=== PATIENT | male | born 1995 | race African-American/Black ===

== ENCOUNTER 2016-07-22 22:57 | Emergency (ER) | payer SELFPAY ==
[~2016-07-22 22:57] MED LIST: Z.0.NO CURRENT MEDS
[2016-07-22 22:59] VITALS: BP 134/66; PULSE 83; RESP 16; TEMP 98.8; O2SAT 98
--- NOTE | 2016-07-23 00:05 | RADRPT ---
EXAM DATE/TIME: 07/22/2016 23:33 [facility] COMPARISON: No previous studies available for comparison. 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 MEDICAL HISTORY : None. SURGICAL HISTORY : None. ENCOUNTER: Initial ACUITY: 3 days PAIN SCORE: 2/10 LOCATION: Left hand FINDINGS: Three view examination of the left hand demonstrates no soft tissue swelling, dislocation, or fractur e. The carpal bones appear intact. The interphalangeal and metacarpophalangeal joints are intact. Bony mineralization is normal. CONCLUSION: Unremarkable examination of the left hand. Kelechi Nichole MD on July 23, 2016 at 0:04 Board Certified Radiologist. This report was verified electronically.
--- NOTE | 2016-07-23 01:07 | PD ---
HPI Chief Complaint: Pain: Acute or Chronic Time Seen by Provider: 01:04 Travel History International Travel<30 days: No Contact w/Intl Traveler<30days: No Traveled to known affect area: No History of Present Illness HPI Patient is a 20-year-old male presenting to emergency Department for evaluation of left hand weakness. 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 He denies any numbness or tingling. He denies any pain or swelling in his hand. He denies any injury or trauma. Patient denies any significant past medical history. His symptoms have been ongoing for approximately 4 days. [facility] Past Medical History Medical History: Denies Significant Hx Developmental Delay: No Immunizations Current: Yes Past Surgical History Surgical History: No Previous Surgery Genitourinary Surgery: Yes (CIRCUMCISION) Social History Alcohol Use: No Tobacco Use: No Substance Use: No Allergies-Medications (Allergen,Severity, Reaction): Coded Allergies: No Known Allergies (Verified , 07/22/16) Reported Meds & Prescriptions Reported Meds & Active Scripts Active No Active Prescriptions or Reported Medications Review of Systems Except as stated in HPI: all other systems reviewed are Neg Neurologic: Positive: Weakness Physical Exam Narrative GENERAL: Well-nourished, well-developed patient. SKIN: Focused skin assessment warm/dry. HEAD: Normocephalic. EYES: No scleral icterus. No injection or drainage. NECK: Supple, trachea midline. No JVD or lymphadenopathy. CARDIOVASCULAR: Regular rate and rhythm without murmurs, gallops, or rubs. RESPIRATORY: Breath sounds equal bilaterally. No accessory muscle use. GASTROINTESTINAL: Abdomen soft, non-tender, nondistended. MUSCULOSKELETAL: No cyanosis, or edema. 4/5 national park tour guide strength on the left. Positive radial pulse, brisk. Less than 2 second capillary refill. No pain with hyperextension of fingers on left hand. BACK: Nontender without obvious deformity. No CVA tenderness. Data Data Last Documented VS Vital Signs Date Time Temp Pulse Resp B/P Pulse Ox O2 Delivery O2 Flow Rate FiO2 07/22/16 22:59 98.8 83 16 134/66 98 Room Air Orders Hand, Complete ([id number]) (07/22/16 ) [facility] Medical Decision Making Medical Screen Exam Complete: Yes Emergency Medical Condition: Yes Interpretation(s) Vital Signs Date Time Temp Pulse Resp B/P Pulse Ox O2 Delivery O2 Flow Rate FiO2 07/22/16 22:59 98.8 83 16 134/66 98 Room Air Differential Diagnosis Neuropathy versus muscle strain versus demyelinating disorder versus myopathy versus other Narrative Course Patient is a 20-year-old male presenting with 4 days of crease 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 Patient is neurovascularly intact, and he had no pain with passive extension of fingers of left hand. No swelling or obvious deformities noted. Patient had no weakness in the left elbow or shoulder. Patient was seen and evaluated by my attending physician as well, at this time patient will be referred to neurology for outpatient testing, EMG studies he was advised to return to emergency department immediately for any new or worsening symptoms. Patient and significant other verbalized understanding of these instructions. Patient is stable for discharge. Physician Communication Physician Communication Discussed with Dr. New who independently evaluated patient. Diagnosis Primary Impression: Distal muscle weakness Referrals: Jaswant Trevino MD Neurologist Patient Instructions: General Instructions Additional Instructions: Follow-up with neurology for outpatient testing Return to the emergency department immediately for any new or worsening symptoms Med/Other Pt SpecificInfo: No Change to Meds Scripts No Active Prescriptions or Reported Meds Disposition: 01 DISCHARGE HOME Condition: Stable Alicia Mills Jul 23, 2016 01:07
== END 2016-07-23 03:01 | disposition home or self-care (01) ==
LOC: NEPD 22:57
DX: M62.81 Muscle weakness (generalized) (principal)
CPT/HCPCS: 73130; 99283

== ENCOUNTER 2016-07-25 16:58 | Emergency (ER) | payer SELFPAY ==
[~2016-07-25] VITALS: Ht 170.2 cm; Wt 110.0 kg
[2016-07-25 17:01] VITALS: BP 132/75; PULSE 80; RESP 20; TEMP 98.6; O2SAT 98
[2016-07-25 17:30] VITALS: BP 118/61; PULSE 79; RESP 20; O2SAT 99
--- NOTE | 2016-07-25 17:32 | PD ---
HPI Chief Complaint: Neuro Symptoms/ Deficits Time Seen by Provider: 17:15 Travel History International Travel<30 days: No Contact w/Intl Traveler<30days: No Traveled to known affect area: No History of Present Illness HPI Patient comes in complaining of continued left upper extremity weaknesses, progressively worse since being seen here 3 days ago. Patient denies any known injury. Patient states previously was just weaknesses left hand, but has since moved up to the shoulder. Patient reports throbbing aching pain from his left upper extremity. Pain is constant and denies anything making it better or worse. Denies any neck pain, headache, chest pain, shortness of breath, change in vision, dizziness, loss change in bowel or bladder, or recent known injury. Mother is concerned over reports patient was dragging his left foot earlier today and patient is a rash on his left foot. Patient reports rash is itchy and that he just been scratching at it. [facility] Past Medical History Medical History: Denies Significant Hx Developmental Delay: No Immunizations Current: Yes Past Surgical History Genitourinary Surgery: Yes (CIRCUMCISION) Social History Alcohol Use: No Tobacco Use: No Substance Use: No Allergies-Medications (Allergen,Severity, Reaction): Coded Allergies: No Known Allergies (Verified , 07/22/16) Reported Meds & Prescriptions Reported Meds & Active Scripts Active No Active Prescriptions or Reported Medications Review of Systems Except as stated in HPI: all other systems reviewed are Neg Physical Exam Narrative GENERAL: Well-developed, overly nourished, in no acute distress, and non-ill appearing. SKIN: Focused skin assessment warm and dry. Tinea pedis noted on the dorsal aspect of left foot. No signs of secondary infection. HEAD: Atraumatic. Normocephalic. EYES: Pupils equal and round. EOMI. No scleral icterus. No injection or drainage. ENT: No nasal bleeding or discharge. Mucous membranes pink and moist. No deviation of the tongue. Smile symmetrical. Equal rise and fall the eyebrows. NECK: Trachea midline. Supple. No nuclear rigidity. No tenderness crepitus or midline cervical spine. CARDIOVASCULAR: Dorsal and radial pulses are 2+, intact, and equal bilaterally. Capillary refill less than 2 seconds. RESPIRATORY: No accessory muscle use. No respiratory distress. MUSCULOSKELETAL: No obvious deformities. No clubbing. No cyanosis. No edema. Full range of motion. Shoulder:FROM equal BL with passive flexion, extension, Abduction, Adduction, internal/external rotation, and pronation/supination. Sensation equal BL deltoid muscles. Pulses equal BL distal to injury. Capillary refill less than 2 seconds distal to injury and equal BL. FROM distal to injury and equal BL. Strength is slightly decreased on the left compared to right. NV intact distal to injury equal BL. Flexion and extension of thumb equal BL. Equal movement with abduction/adductions of BL fingers. 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 NEUROLOGICAL: Awake and alert. No obvious cranial nerve deficits. Motor grossly within normal limits. Normal speech. PSYCHIATRIC: Appropriate mood and affect; insight and judgment normal. Data Data Last Documented VS Vital Signs Date Time Temp Pulse Resp B/P Pulse Ox O2 Delivery O2 Flow Rate FiO2 07/25/16 19:21 67 18 121/58 100 07/25/16 17:30 Room Air 07/25/16 17:[address] Brain W/O Iv Contrast(Rout) (07/25/16 ) Ct Cerv Spine W/O Contrast (07/25/16 ) Shoulder, Complete (>2vws) (07/25/16 ) [facility] Medical Decision Making Medical Screen Exam Complete: Yes Emergency Medical Condition: Yes Interpretation(s) CT the head, CT the cervical spine, x-rays of the left shoulder read by the radiologist showed no acute abnormalities. Differential Diagnosis Radiculopathy, tumor, fracture, nerve impingement, other Narrative Course Patient in no obvious distress upon re-evaluation. All pertinent Radiology result(s) discussed with patient/family. Discussed patient with Dr. Cope, who saw and evaluated the patient and is in agreement with plan of care and disposition.. Any questions/concerns in reference to patient diagnosis/ condition discussed and clarified prior to patient's discharge. Reinforced sheer importance of close follow up with patient's primary physician or primary care clinic and/or neurology. Instructed patient to return to ED immediately, if symptoms return/worsen. Pt showed understanding of above instructions. Further instructions and recommendations were detailed in discharge paperwork. Pt ambulated without difficulty out of ED at discharge. Diagnosis Primary Impression: Left arm weakness Additional Impression: Tinea pedis of left foot Patient Instructions: General Instructions, Tinea Pedis (DC), Weakness (ED) Additional Instructions: Follow-up with your primary care physician and neurology this week for reevaluation. Use [id number] antifungal cream for your rash. Follow instructions on the packaging. Return to the emergency department if symptoms get worse. Scripts No Active Prescriptions or Reported Meds Disposition: 01 DISCHARGE HOME Condition: Reinier Fuentes Jul 25, 2016 17:32
--- NOTE | 2016-07-25 18:18 | RADRPT ---
EXAM DATE/TIME: 07/25/2016 17:35 [facility] COMPARISON: No previous studies available for comparison. INDICATIONS : Non-traumatic left shoulder pain MEDICAL HISTORY : None. SURGICAL HISTORY : None. ENCOUNTER: Initial ACUITY: 3 days PAIN SCORE: 7/10 LOCATION: Left shoulder FINDINGS: Multiple view examination of the left shoulder demonstrates no evidence of fracture or dislocation. The glenohumeral and acromioclavicular joints are maintained. There is normal range of motion betwee n internal and external rotation. Bony mineralization is normal. CONCLUSION: Normal radiographic appearance of the left shoulder. Herbie Fisher MD on July 25, 2016 at 18:15 Board Certified Radiologist. This report was verified electronically.
--- NOTE | 2016-07-25 18:22 | RADRPT ---
EXAM DATE/TIME: 07/25/2016 18:07 [facility] COMPARISON: No previous studies available for comparison. INDICATIONS : Left sided weakness. RADIATION DOSE: 56.35 CTDIvol (mGy) MEDICAL HISTORY : None SURGICAL HISTORY : None. ENCOUNTER: Initial ACUITY: 3 days PAIN SCALE: 0/10 LOCATION: cranial TECHNIQUE: Multiple contiguous axial images were obtained of the head. Using automated exposure control and adj ustment of the mA and/or kV according to patient size, radiation dose was kept as low as reasonably a chievable to obtain optimal diagnostic quality images. FINDINGS: CEREBRUM: The ventricles are normal for age. No evidence of midline shift, mass lesion, hemorrhage or acute in farction. No extra-axial fluid collections are seen. POSTERIOR FOSSA: The cerebellum and brainstem are intact. The 4th ventricle is midline. The cerebellopontine angle i s unremarkable. EXTRACRANIAL: 3.4 cm mucous retention cyst seen in the left maxillary air cell. Visualized paranasal sinuses are ot herwise clear. Mastoid air cells are also clear. SKULL: The calvaria is intact. No evidence of skull fracture. CONCLUSION: No acute intracranial abnormality demonstrated. Herbie Fisher MD on July 25, 2016 at 18:18 Board Certified Radiologist. This report was verified electronically.
--- NOTE | 2016-07-25 18:23 | RADRPT ---
EXAM DATE/TIME: 07/25/2016 18:09 [facility] COMPARISON: No previous studies available for comparison. INDICATIONS : Left sided weakness. RADIATION DOSE: 18.26 CTDIvol (mGy) MEDICAL HISTORY : None SURGICAL HISTORY : None. ENCOUNTER: Initial ACUITY: 3 days PAIN SCALE: 0/10 LOCATION: neck TECHNIQUE: Volumetric scanning of the cervical spine was performed. Multiplanar reconstructions in the sagittal, coronal and oblique axial planes were performed. Using automated exposure control and adjustment o f the mA and/or kV according to patient size, radiation dose was kept as low as reasonably achievable to obtain optimal diagnostic quality images. FINDINGS: VERTEBRAE: Normal vertebral body height. ALIGNMENT: No evidence of subluxation. C2-C3: The bony spinal canal is normal in size. No evidence of disc bulge or herniation. The neural forami na are bilaterally patent. C3-C4: The bony spinal canal is normal in size. No evidence of disc bulge or herniation. The neural forami na are bilaterally patent. C4-C5: The bony spinal canal is normal in size. No evidence of disc bulge or herniation. The neural forami na are bilaterally patent. C5-C6: The bony spinal canal is normal in size. No evidence of disc bulge or herniation. The neural forami na are bilaterally patent. C6-C7: The bony spinal canal is normal in size. No evidence of disc bulge or herniation. The neural forami na are bilaterally patent. C7-T1: The bony spinal canal is normal in size. No evidence of disc bulge or herniation. The neural forami na are bilaterally patent. CONCLUSION: Normal CT of the cervical spine. Herbie Fisher MD on July 25, 2016 at 18:21 Board Certified Radiologist. This report was verified electronically.
[2016-07-25 19:21] VITALS: BP 121/58
== END 2016-07-25 19:24 | disposition home or self-care (01) ==
LOC: NEPC 16:58
DX: R53.1 Weakness (principal); B35.3 Tinea pedis
CPT/HCPCS: 70450; 72125; 73030

== ENCOUNTER 2016-11-11 23:19 | Inpatient (IN) | payer SELFPAY ==
[~2016-11-11] VITALS: Ht 170.2 cm; Wt 101.3 kg
[~2016-11-11 23:19] MED LIST changes: +AMOX875T PO; -Z.0.NO CURRENT MEDS
[2016-11-11 23:21] VITALS: BP 132/76; PULSE 78; RESP 16; TEMP 98.3; O2SAT 99
[2016-11-12] VITALS (8 sets, daily range): BP systolic 114–126; BP diastolic 59–91; PULSE 56–71; RESP 16–19; TEMP 97.5–98.5; O2SAT 99–100
--- NOTE | 2016-11-12 00:37 | PD ---
HPI Chief Complaint: Neuro Symptoms/ Deficits Time Seen by Provider: 00:19 Travel History International Travel<30 days: No Contact w/Intl Traveler<30days: No Traveled to known affect area: No History of Present Illness HPI The patient is a 21 year old male who presents to the [facility] emergency department with a history of left side arm and leg weakness that began on 07/22. The weakness is constant and worsening over time. He was referred to a neurologist and to have an outpatient MRI however he lost his insurance and was not able to complete the evaluation. He has mild dizziness with it and has fallen a few times because of the weakness and dizziness. His mom is present at the patient's bedside and reports that he has gotten progressively worse over the last 2 weeks. She reports that they're in the process of applying for patient assistance. She reports noticing that he is also experiencing facial asymmetry with a slight change in the appearance of the left side of his face. He denies having any headaches, fevers, cough, congestion, neck pain, chest pain , shortness of breath, abdominal pain, vomiting, diarrhea, urinary symptoms, numbness or tingling, double vision, difficulty speaking, or difficulty with word finding ability. [facility] Past Medical History Narrative Medical The patient's past medical history is reportedly None. Developmental Delay: No Diminished Hearing: No Immunizations Current: Yes Past Surgical History Surgical History: No Previous Surgery Genitourinary Surgery: Yes (CIRCUMCISION) Social History Alcohol Use: Yes (every other week.) Tobacco Use: No Substance Use: No Allergies-Medications (Allergen,Severity, Reaction): Coded Allergies: No Known Allergies (Verified , 11/12/16) Reported Meds & Prescriptions Reported Meds & Active Scripts Active Amoxicillin 875 Mg Tab 875 Mg PO BID on antibiotic for an ear infection Review of Systems Except as stated in HPI: all other systems reviewed are Neg General / Constitutional: No: Fever Eyes: No: Visual changes HENT: Positive: Other (bubbling noise in his ear.), No: Headaches Cardiovascular: No: Chest Pain or Discomfort Respiratory: No: Shortness of Breath Gastrointestinal: No: Abdominal Pain Genitourinary: No: Dysuria Musculoskeletal: No: Pain Skin: No Rash Neurologic: Positive: Weakness, Dizziness, Focal Abnormalities, Coordination Problem, No: Change in Mentation, Slurred Speech, Sensory Disturbance Psychiatric: No: Depression Endocrine: No: Polydipsia Hematologic/Lymphatic: No: Easy Bruising Physical Exam Narrative General: The patient is a well-developed well-nourished male in no acute distress. Head and Neck exam: Head is normocephalic atraumatic. Eyes: EOMI, pupils are equal round and reactive to light. Nose: Midline septum with pink mucous membranes Mouth: Dentition unremarkable. Moist mucus membranes. Posterior oropharynx is not erythematous. No tonsillar hypertrophy. Uvula midline. Airway patent. Neck: No palpable lymphadenopathy. No nuchal rigidity. No thyromegaly. Cardiovascular: Regular rate and rhythm without murmurs, gallops, or rubs. No pulse deficit to the extremities. Lungs: Clear to auscultation bilaterally. No wheezes, rhonchi, or rales. Abdomen: Soft, without tenderness to palpation in all 4 quadrants of the abdomen. No guarding, rebound, or rigidity. Normal bowel sounds are audible. No tenderness on palpation of McBurney's point. Negative Galicia's sign. Extremities: No clubbing, cyanosis, or edema. 2+ pulses in all 4 extremities. Back: No spinous process tenderness to palpation. No costovertebral angle tenderness to palpation. Neurologic Exam: The patient has an apparent subtle left-sided facial droop. The patient has a slightly weaker hand area loss prevention manager of the left hand compared to the right, otherwise strength is 5 over 5 in bilateral upper extremities. Strength is 5 over 5 in bilateral lower extremities. The patient has a course tremor in the left upper extremity with movements. Otherwise, cranial nerves II through XII are intact. No nystagmus. No dysdiadochokinesis. Skin Exam: No rash noted. Intact skin that is warm and dry. Data Data Last Documented VS Vital Signs Date Time Temp Pulse Resp B/P (MAP) Pulse Ox O2 Delivery O2 Flow Rate FiO2 11/11/16 23:21 98.3 78 16 132/76 (94) 99 Room Air Orders Orders Electrocardiogram (11/12/16 00:19) Complete Blood Count With Diff (11/12/16 00:19) Comprehensive Metabolic Panel (11/12/16 00:19) Creatine Kinase (Cpk) (11/12/16 00:19) Ckmb (Isoenzyme) Profile (11/12/16 00:19) Prothrombin Time / Inr (Pt) (11/12/16 00:19) Act Partial Throm Time (Ptt) (11/12/16 00:19) C-Reactive Protein (Crp) (11/12/16 00:19) Urinalysis - C+S If Indicated (11/12/16 00:19) Westergren Sedimentation Rate (11/12/16 00:19) Magnesium (Mg) (11/12/16 00:19) Thyroid Stimulating Hormone (11/12/16 00:19) Chest, Single Ap (11/12/16 00:19) Ct Brain W/O Iv Contrast(Rout) (11/12/16 00:19) Iv Access Insert/Monitor (11/12/16 00:19) Ecg Monitoring (11/12/16 00:19) Oximetry (11/12/16 00:19) Drug Screen, Random Urine (11/12/16 00:19) Alcohol (Ethanol) (11/12/16 00:19) Admit Order (Ed Use Only) (11/12/16 02:56) Consult Neurology (11/12/16 ) Labs Laboratory Tests Test 11/12/16 00:45 White Blood Count 10.6 TH/MM3 Red Blood Count 4.94 MIL/MM3 Hemoglobin 14.4 GM/DL Hematocrit 42.4 % Mean Corpuscular Volume 85.9 FL Mean Corpuscular Hemoglobin 29.2 PG Mean Corpuscular Hemoglobin Concent 33.9 % Red Cell Distribution Width 13.4 % Platelet Count 301 TH/MM3 Mean Platelet Volume 7.8 FL Neutrophils (%) (Auto) 55.9 % Lymphocytes (%) (Auto) 37.1 % Monocytes (%) (Auto) 5.0 % Eosinophils (%) (Auto) 1.5 % Basophils (%) (Auto) 0.5 % Neutrophils # (Auto) 5.9 TH/MM3 Lymphocytes # (Auto) 3.9 TH/MM3 Monocytes # (Auto) 0.5 TH/MM3 Eosinophils # (Auto) 0.2 TH/MM3 Basophils # (Auto) 0.1 TH/MM3 CBC Comment DIFF FINAL Differential Comment Erythrocyte Sedimentation Rate 2 mm/hr Prothrombin Time 10.8 SEC Prothromb Time International Ratio 1.0 RATIO Activated Partial Thromboplast Time 28.5 SEC Blood Urea Nitrogen 8 MG/DL Creatinine 0.92 MG/DL Random Glucose 84 MG/DL Total Protein 7.8 GM/DL Albumin 3.9 GM/DL Calcium Level 9.3 MG/DL Magnesium Level 2.2 MG/DL Alkaline Phosphatase 50 U/L Aspartate Amino Transf (AST/SGOT) 9 U/L Alanine Aminotransferase (ALT/SGPT) 10 U/L Total Bilirubin 0.3 MG/DL Sodium Level 138 MEQ/L Potassium Level 4.1 MEQ/L Chloride Level 105 MEQ/L Carbon Dioxide Level 30.1 MEQ/L Anion Gap 3 MEQ/L Estimat Glomerular Filtration Rate 126 ML/MIN Total Creatine Kinase 95 U/L C-Reactive Protein LESS THAN 0.29 MG/DL Thyroid Stimulating Hormone 3rd Gen 1.920 uIU/ML Ethyl Alcohol Level LESS THAN 3 MG/DL MDM Medical Decision Making Medical Screen Exam Complete: Yes Emergency Medical Condition: Yes Medical Record Reviewed: Yes Interpretation(s) Last Impressions Head CT 11/12/1618 Signed Impressions: Service Date/Time: October 00:59 - CONCLUSION: Low attenuation in the area of the right basal ganglia. Further evaluation with MRI of the brain with and without contrast is recommended. Pola Gonzalez MD Chest X-Ray 11/12/1618 Signed Impressions: Service Date/Time: October 00:48 - CONCLUSION: 1. Enlarged cardiopericardial silhouette. No focal infiltrate or effusion. Pola Gonzalez MD Differential Diagnosis Ischemic stroke, versus multiple sclerosis, versus vasculitis. Narrative Course During the course of the patients emergency department visit, the patients history, examination, and differential diagnosis were reviewed with the patient. The patient had IV access obtained and blood work sent for analysis. The patient was placed on a precision printing worker with oximetry and blood pressure monitoring. The patient's electronic medical record was reviewed. The patient was initially seen in the emergency department on July 22, the patient had an x- ray done of his limb, and on July 25 the patient was again seen in the emergency department and did have a CT scan of the brain done that was negative. A repeat CT scan has been ordered at this time as he does have abnormalities noted on his neurologic examination. The patients laboratory studies were reviewed and remarkable for a CBC that is within normal limits, sedimentation rate is 2. CMP is remarkable for an anion gap of 3, AST 9, ALT 10, CPK 95, C-reactive protein less than 0.29, TSH 1.92, PT PTT within normal limits, alcohol level less than 3 Radiology studies were reviewed and remarkable for a CT scan of the brain that shows a low attenuation area in the right basal ganglia, further evaluation with MRI of the brain with and without contrast is recommended. A chest x-ray that shows an enlarged cardiopericardial silhouette, no focal infiltrate or effusion. The patient will be admitted to the hospital to obtain the MRI and for a neurologic consultation. The patients results were discussed with the patient, including the plan of care. I explained that further testing and/ or monitoring is indicated based on the patients history, examination, and/ or laboratory findings. Therefore, I recommended admission for additional evaluation. The patient expressed understanding and was agreeable with this plan. The patient was admitted to the hospital in stable condition and [facility] Physician Communication Physician Communication The patient's case was discussed with Dr. Morales who did agree to admit the patient for further evaluation and treatment at this time for Diagnosis Primary Impression: Multiple neurological symptoms Admitting Information Admitting Physician Requests: Katharina Cleary MD Nov 12, 2016 00:37
[2016-11-12 01:08] LABS: AUTOMATED NEUTROPHIL # 5.9 TH/MM3 (1.8-7.7); BASOPHIL # 0.1 TH/MM3 (0-0.2); BASOPHIL % 0.5 % (0.0-2.0); EOSINOPHIL # 0.2 TH/MM3 (0-0.4); EOSINOPHIL % 1.5 % (0.0-4.0); HEMATOCRIT 42.4 % (39.0-51.0); HEMO FLAGS DIFF FINAL; LYMPH % 37.1 % (9.0-44.0); LYMPHOCYTE # 3.9 TH/MM3 (1.0-4.8); MEAN CELL VOLUME 85.9 FL (80.0-100.0); MEAN CORPUSCULAR HEMOGLOBIN 29.2 PG (27.0-34.0); MEAN CORPUSCULAR HGB CONC 33.9 % (32.0-36.0); NEUT % 55.9 % (16.0-70.0); PLATELET COUNT 301 TH/MM3 (150-450); RED BLOOD COUNT 4.94 MIL/MM3 (4.50-5.90); RED CELL DISTRIBUTION WIDTH 13.4 % (11.6-17.2); WHITE BLOOD COUNT 10.6 TH/MM3 (4.0-11.0)
[2016-11-12 01:20] LABS: APTT (PATIENT) 28.5 SEC (24.3-30.1); PROTHROMBIN TIME - PATIENT 10.8 SEC (9.8-11.6)
[2016-11-12 01:23] LABS: ALT (GPT) 10 U/L (12-78); ANION GAP 3 MEQ/L (5-15); AST (GOT) 9 U/L (15-37); BICARBONATE 30.1 MEQ/L (21.0-32.0); BLOOD UREA NITROGEN 8 MG/DL (7-18); CHLORIDE 105 MEQ/L (98-107); GLOMERULAR FILTRATION RATE 126 ML/MIN (>89); MAGNESIUM 2.2 MG/DL (1.5-2.5); POTASSIUM 4.1 MEQ/L (3.5-5.1); SODIUM (NA) 138 MEQ/L (136-145)
--- NOTE | 2016-11-12 01:29 | RADRPT ---
EXAM DATE/TIME: 11/12/2016 00:59 [facility] COMPARISON: CT BRAIN W/O CONTRAST, July 25, 2016, 18:07. INDICATIONS : Increased left sided weakness; left sided weakness for four months. RADIATION DOSE: 32.82 CTDIvol (mGy) MEDICAL HISTORY : None SURGICAL HISTORY : None. ENCOUNTER: Initial ACUITY: 1 day PAIN SCALE: 0/10 LOCATION: cranial TECHNIQUE: Multiple contiguous axial images were obtained of the head. Using automated exposure control and adj ustment of the mA and/or kV according to patient size, radiation dose was kept as low as reasonably a chievable to obtain optimal diagnostic quality images. DICOM format image data is available electro nically for review and comparison. FINDINGS: There is some ill-defined low attenuation in the right basal ganglia region. Cannot exclude underlyin g lesion or infarct. Recommend further evaluation with MRI of the brain. No hydrocephalus. No acute b rosemarie abnormalities. No abnormal extra-axial fluid. CONCLUSION: Low attenuation in the area of the right basal ganglia. Further evaluation with MRI of the brain with and without contrast is recommended. Pola Gonzalez MD on November 12, 2016 at 1:24 Board Certified Radiologist. This report was verified electronically.
[2016-11-12 01:31] LABS: ALKALINE PHOSPHATASE 50 U/L (45-117); TOTAL BILIRUBIN ADULT 0.3 MG/DL (0.2-1.0)
[2016-11-12 01:32] LABS: ALCOHOL LESS THAN 3 MG/DL (0-5); CREATINE KINASE 95 U/L (39-308)
--- NOTE | 2016-11-12 01:33 | RADRPT ---
EXAM DATE/TIME: 11/12/2016 00:48 [facility] COMPARISON: No previous studies available for comparison. INDICATIONS : Cough. Left side weakness. MEDICAL HISTORY : None. SURGICAL HISTORY : None. ENCOUNTER: Initial ACUITY: 1 day PAIN SCORE: 0/10 LOCATION: Left chest FINDINGS: A single view of the chest demonstrates enlargement of the cardiopericardial silhouette. No focal con solidation or significant effusion. No pneumothorax. CONCLUSION: 1. Enlarged cardiopericardial silhouette. No focal infiltrate or effusion. Pola Gonzalez MD on November 12, 2016 at 1:31 Board Certified Radiologist. This report was verified electronically.
[2016-11-12] MEDS ORDERED: GLUCAGON 1 MG/ML VIAL OTHER PRN (03:15)
[2016-11-12] MEDS ORDERED: DEXTROSE 50% IN WATER 50 ML VIAL(D50) IV PUSH PRN (03:15)
[2016-11-12] MEDS ORDERED: SODIUM CHLORIDE 0.9% FLUSH 5 ML FLUSH IV FLUSH PRN (03:15)
[2016-11-12] MEDS ORDERED: GADODIAMIDE PF 287 MG/ML 20 ML VIAL (for RAD MRI) IVCONTRAST ONE (08:29)
[2016-11-12] MEDS ORDERED: SODIUM CHLOR 0.9% 1000 ML INJ 1,000 ML IV ONE (09:15)
--- NOTE | 2016-11-12 09:32 | HHI.HP ---
HPI Service [facility] Primary Care Physician Komal Olivia MD Admission Diagnosis Progressive neurologic symptoms Diagnoses: Chief Complaint: Trouble walking, worsening weakness on left side Travel History International Travel<30 Days: No Contact w/Intl Traveler <30 Da: No Traveled to Known Affected Are: No History of Present Illness 21-year-old black male being admitted for progressive left-sided weakness. Patient was in his usual state of health until about 1 week ago when he began noticing worsening left leg weakness and difficulty walking. This problem originally emerged earlier about 3 months ago in July per the patient. Says that he was referred to a neurologist and then referred for outpatient MRI imaging which he was not able to obtain due to loss of insurance. About one week ago he reports having worsening weakness of his left leg, namely the thigh and calf. Says that he can crank his ankles and toes just fine; but does note difficulty walking while leaning towards his left side and says that he does not feel like he can walk steadily, reports near falls consequently. This is also associated with mild left arm weakness which she says he notices while he is showering and also was informed that his lips were "turning in" by his mother. He reports that he has some uncontrolled drooling when he drinks liquids, but denies any issues with choking or coughing while ingesting liquids and or solids. He also reports intermittent blurry vision that has also been picking up frequency since one week ago. Denies any new headaches, nausea, vomiting, fevers, chills, changes in sensation, burning or tingling pain. Denies taking any medications to treat symptoms. Patient has a very subtle resting tremor in both hands, when asked about this, he says this is something he's had lifelong. Review of Systems Except as stated in HPI: all other systems reviewed are Neg Past Family Social History Past Medical History None Past Surgical History None Allergies: Coded Allergies: No Known Allergies (Verified , 11/12/16) Family History No family history of any neurological or msk disease per patient Social History Lives with father, was going to college until his illness began worsening, denies any illicit drug use, reports drinking up to 8 ounces of alcohol about every other week on social occasions Physical Exam Vital Signs Vital Signs Date Time Temp Pulse Resp B/P (MAP) Pulse Ox O2 Delivery O2 Flow Rate FiO2 11/12/16 07:36 97.8 62 18 122/70 (87) 100 11/12/16 07:11 56 11/12/16 06:11 60 11/12/16 06:04 97.5 62 19 126/91 (103) 100 11/11/16 23:21 98.3 78 16 132/76 (94) 99 Room Air Physical Exam VS: Reviewed, afebrile GENERAL: No acute distress, awake, SKIN: Warm and dry. EYES: Pupils equal and round. No scleral icterus. No injection or drainage. ENT: No nasal bleeding or discharge. Mucous membranes pink and moist. CARDIOVASCULAR: Regular rate and rhythm. no murmurs RESPIRATORY: No accessory muscle use. Clear to auscultation. Breath sounds equal bilaterally. GASTROINTESTINAL: Abdomen soft, non-tender, nondistended. Hepatic and splenic margins not palpable. MUSCULOSKELETAL: Extremities without clubbing, cyanosis, or edema. No obvious deformities. grossly intact ROM with 4 out of 5 strength noted in proximal left upper extremity in comparison to 5 out of 5 on the right, yet intact 5 out of 5 fist hair cutter bilaterally. Patient needing considerable assistance with balance upon transferring from bed to wheelchair NEUROLOGICAL: Awake and alert. Left-sided facial droop noted, no diplopia noted , intact conjugate gaze , extraocular motions intact, uvula and tongue midline, unable to precisely perform left finger to nose to finger test in comparison to normal on the right, slightly abnormal tsym-pt-bvic test on the left, grossly intact sensation to pinprick over anterior shins and dorsum of bilateral feet as well as distal arms bilaterally. Slightly hyperreflexive left patellar reflex, normal 2+ right patellar reflex. Very subtle resting tremor in both hands that resolves with movement PSYCHIATRIC: Appropriate mood and affect; insight and judgment normal. Laboratory Laboratory Tests Test 11/12/16 00:45 White Blood Count 10.6 Red Blood Count 4.94 Hemoglobin 14.4 Hematocrit 42.4 Mean Corpuscular Volume 85.9 Mean Corpuscular Hemoglobin 29.2 Mean Corpuscular Hemoglobin Concent 33.9 Red Cell Distribution Width 13.4 Platelet Count 301 Mean Platelet Volume 7.8 Neutrophils (%) (Auto) 55.9 Lymphocytes (%) (Auto) 37.1 Monocytes (%) (Auto) 5.0 Eosinophils (%) (Auto) 1.5 Basophils (%) (Auto) 0.5 Neutrophils # (Auto) 5.9 Lymphocytes # (Auto) 3.9 Monocytes # (Auto) 0.5 Eosinophils # (Auto) 0.2 Basophils # (Auto) 0.1 CBC Comment DIFF FINAL Differential Comment Erythrocyte Sedimentation Rate 2 Prothrombin Time 10.8 Prothromb Time International Ratio 1.0 Activated Partial Thromboplast Time 28.5 Blood Urea Nitrogen 8 Creatinine 0.92 Random Glucose 84 Total Protein 7.8 Albumin 3.9 Calcium Level 9.3 Magnesium Level 2.2 Alkaline Phosphatase 50 Aspartate Amino Transf (AST/SGOT) 9 Alanine Aminotransferase (ALT/SGPT) 10 Total Bilirubin 0.3 Sodium Level 138 Potassium Level 4.1 Chloride Level 105 Carbon Dioxide Level 30.1 Anion Gap 3 Estimat Glomerular Filtration Rate 126 Total Creatine Kinase 95 C-Reactive Protein LESS THAN 0.29 Thyroid Stimulating Hormone 3rd Gen 1.920 Ethyl Alcohol Level LESS THAN 3 Result Diagram: 11/12/165 11/12/165 Imaging Last Impressions Head CT 11/12/1618 Signed Impressions: Service Date/Time: October 00:59 - CONCLUSION: Low attenuation in the area of the right basal ganglia. Further evaluation with MRI of the brain with and without contrast is recommended. Pola Gonzalez MD Chest X-Ray 11/12/1618 Signed Impressions: Service Date/Time: October 00:48 - CONCLUSION: 1. Enlarged cardiopericardial silhouette. No focal infiltrate or effusion. Pola Gonzalez MD Head Magnetic Resonance Angiography 11/12/16 0000 Signed Impressions: Service Date/Time: October 08:10 - CONCLUSION: Tiny right cavernous carotid aneurysm. Herbie Clemens MD Brain MRI 11/12/16 0000 Signed Impressions: Service Date/Time: October 08:10 - CONCLUSION: Widespread demyelinating disease with plaques at varying stages of evolution, including areas of active enhancing inflammation. MD Neena Mosquerai VTE Risk Assessment Adarshrintori VTE Risk Assessment: No/Low Risk (score <= 1) Caprini Risk Assessment Model Point Value = 1 Point Value = 2 Point Value = 3 Point Value = 5 Age 41-60 Minor surgery BMI > 25 kg/m2 Swollen legs Varicose veins or History of unexplained or recurrent spontaneous Oral contraceptives or hormone replacement Sepsis (< 1 month) Serious lung disease, including pneumonia (< 1 month) Abnormal pulmonary function Acute myocardial infarction Congestive heart failure (< 1 month) History of inflammatory bowel disease Medical patient at bed rest Age 61-74 Arthroscopic surgery Major open surgery (> 45 min) Laparoscopic surgery (> 45 min) Malignancy Confined to bed (> 72 hours) Immobilizing plaster cast Central venous access Age >= 75 History of VTE Family history of VTE Factor V Leiden Prothrombin [id number] Lupus anticoagulant Anticardiolipin antibodies Elevated serum homocysteine Heparin-induced thrombocytopenia Other congenital or acquired thrombophilia Stroke (< 1 month) Elective arthroplasty Hip, pelvis, or leg fracture Acute spinal cord injury (< 1 month) Prophylaxis Regimen Total Risk Factor Score Risk Level Prophylaxis Regimen 0-1 Low Early ambulation 2 Moderate Order ONE of the following: *Sequential Compression Device (SCD) *Heparin 5000 units SQ BID 3-4 Higher Order ONE of the following medications: *Heparin 5000 units SQ TID *Enoxaparin/Lovenox 40 mg SQ daily (WT < 150 kg, CrCl > 30 mL/min) *Enoxaparin/Lovenox 30 mg SQ daily (WT < 150 kg, CrCl > 10-29 mL/min) *Enoxaparin/Lovenox 30 mg SQ BID (WT < 150 kg, CrCl > 30 mL/min) AND/OR *Sequential Compression Device (SCD) 5 or more Highest Order ONE of the following medications: *Heparin 5000 units SQ TID (Preferred with Epidurals) *Enoxaparin/Lovenox 40 mg SQ daily (WT < 150 kg, CrCl > 30 mL/min) *Enoxaparin/Lovenox 30 mg SQ daily (WT < 150 kg, CrCl > 10-29 mL/min) *Enoxaparin/Lovenox 30 mg SQ BID (WT < 150 kg, CrCl > 30 mL/min) AND *Sequential Compression Device (SCD) Assessment and Plan Assessment and Plan 21-year-old black male being admitted for progressive left-sided weakness - Progressive left-sided weakness I independently reviewed the MRI slices and noted scattered spots throughout cerebrum with hyperattenuation that could possibly resemble multiple sclerosis. His historical presentation does not resemble that of a stroke. Neurology has been consulted. Labs have been reviewed which are highly unremarkable including TSH, magnesium, LFTs, CPK, ESR, electrolytes. We'll add on phosphorus. Neurology has also been consulted. We'll place on fall precautions as well as ordering physical and occupational therapy. Will give one-time IV bolus since patient has received contrast and recheck electrolytes tomorrow. - Facial droop Likely secondary to above, ordering speech therapy for diet and rehabilitation recommendations Physician Certification 2 Midnight Certification Type: Admission for Inpatient Services Order for Inpatient Services The services are ordered in accordance with Medicare regulations or non- Medicare payer requirements, as applicable. In the case of services not specified as inpatient-only, they are appropriately provided as inpatient services in accordance with the 2-midnight benchmark. Estimated LOS (days): 2 2 days is the estimated time the patient will need to remain in the hospital, assuming treatment plan goals are met and no additional complications. Post-Hospital Plan: Not yet determined Dane Zambrano MD Nov 12, 2016 09:32
[2016-11-12] MEDS: SODIUM CHLORIDE 0.9% FLUSH 5 ML FLUSH IV FLUSH SCH ×2 (09:33→21:00)
--- NOTE | 2016-11-12 09:54 | RADRPT ---
EXAM DATE/TIME: 11/12/2016 08:10 [facility] COMPARISON: CT BRAIN W/O CONTRAST, July 25, 2016, 18:07. CT BRAIN W/O CONTRAST, November 12, 2016, 0:59. INDICATIONS : Increasing left sided weakness over past 4 months. CONTRAST: 20 cc Omniscan (gadodiamide) IV MEDICAL HISTORY : None. SURGICAL HISTORY : None. ENCOUNTER: Subsequent ACUITY: 4-6 months PAIN SCORE: 0/10 LOCATION: head. TECHNIQUE: Multiplanar, multisequence MRI of the brain was performed both prior to and following the administrat ion of paramagnetic contrast. FINDINGS: There are widespread white matter plaques of varying stages of evolution involving supratentorial bra in as well as the upper brain brainstem structures. A lesion in the high convexity right parietal reg ion shows moderate peripheral ring enhancement and there is a punctate area of enhancement in the sub cortical left occipital region, these areas indicating active ongoing inflammation. There is no evide nce of intracranial hemorrhage or mass. There is nothing to suggest acute infarction. There are mucus retention cysts in the left maxillary antrum. Cranial structures are otherwise grossly benign CONCLUSION: Widespread demyelinating disease with plaques at varying stages of evolution, including areas of acti ve enhancing inflammation. Herbie Clemens MD on November 12, 2016 at 9:39 Board Certified Radiologist. This report was verified electronically.
--- NOTE | 2016-11-12 10:01 | RADRPT ---
EXAM DATE/TIME: 11/12/2016 08:10 [facility] COMPARISON: No previous studies available for comparison. INDICATIONS : Increasing left sided weakness for 4 months. MEDICAL HISTORY : None. SURGICAL HISTORY : None. ENCOUNTER: Subsequent ACUITY: 4-6 months PAIN SCORE: 0/10 LOCATION: head. Please note a normal MRA of the brain does not entirely exclude the possibility of a small aneurysm, nor the possibility of distal intracranial vessel disease. TECHNIQUE: 3D time of flight MRA was performed. Source images, multiplanar STS MIP, and 3D volume MIP reconstru ctions were reviewed. FINDINGS: There is a 2 mm saccular outpouching involving the undersurface of the right internal carotid artery opposite the origin of the right ophthalmic artery protruding downward into the cavernous sinus. The [place] vessels are intact and unremarkable with no evidence of major vessel occlusion or st enosis. No vascular malformation is identified. The posterior circulation is intact and unremarkable. CONCLUSION: Tiny right cavernous carotid aneurysm. Herbie Clemens MD on November 12, 2016 at 9:52 Board Certified Radiologist. This report was verified electronically.
[2016-11-12 16:00] LABS: HEMOGLOBIN A1a 1.2 %; HEMOGLOBIN A1b 1.7 %; HEMOGLOBIN Ao 86.3 %; HEMOGLOBIN LA1C 1.6 %; HEMOGLOBIN P3 3.3 %
--- NOTE | 2016-11-12 17:07 | EKG ---
Date Performed: 11/12/2016 Time Performed: 00:48:07 PTAGE: 21 years EKG: Sinus rhythm NONSPECIFIC ST ELEVATION BORDERLINE ECG NO PREVIOUS TRACING DOCTOR: Clarisa Salomon Interpretating Date/Time 11/12/2016 17:07:03
[2016-11-12] MEDS ORDERED: ACETAMINOPHEN/CODEINE 300 MG/30 MG TAB PO PRN (19:15)
[2016-11-13] VITALS (7 sets, daily range): BP systolic 112–136; BP diastolic 55–74; PULSE 52–91; RESP 17–20; TEMP 97.9–98.6; O2SAT 98–100
[2016-11-13 07:44] LABS: BICARBONATE 28.5 MEQ/L (21.0-32.0); POTASSIUM 4.1 MEQ/L (3.5-5.1)
[2016-11-13 07:47] LABS: HDL CHOLESTEROL 43.3 MG/DL (40.0-60.0)
[2016-11-13] MEDS: SODIUM CHLORIDE 0.9% FLUSH 5 ML FLUSH IV FLUSH SCH ×2 (09:00→21:00)
[2016-11-13] MEDS ORDERED: GADODIAMIDE PF 287 MG/ML 20 ML VIAL (for RAD MRI) IVCONTRAST ONE (10:14)
--- NOTE | 2016-11-13 10:31 | HHI.PR ---
Subjective Remarks Patient thinks his weakness is about the same since yesterday. Tolerating by mouth intake well without any issues, has been cleared by speech for regular diet with thin liquids. currently being transported to MRI. D/w nursing, no setbacks overnight. Objective Vital Signs Date Time Temp Pulse Resp B/P (MAP) Pulse Ox O2 Delivery O2 Flow Rate FiO2 11/13/16 08:00 98.3 52 20 112/55 (74) 99 11/13/16 04:30 98.1 67 19 118/74 (89) 100 11/13/16 00:00 97.9 76 17 120/64 (82) 100 11/12/16 20:30 98.5 71 16 124/67 (86) 100 11/12/16 16:06 97.8 65 18 114/59 (77) 99 11/12/16 16:00 71 11/12/16 11:01 98.0 70 19 126/62 (83) 100 I/O 11/12/16 11/12/16 11/12/16 11/13/16 11/13/16 11/13/16 07:00 15:00 23:00 07:00 15:00 23:00 Intake Total 1000 ml 1200 ml Balance 1000 ml 1200 ml Intake Oral 1000 ml 1200 ml # Voids 1 4 # Bowel Movements 0 0 Result Diagram: 11/12/16 0045 11/13/16 0619 Imaging Last Impressions Head CT 11/12/1618 Signed Impressions: Service Date/Time: October 00:59 - CONCLUSION: Low attenuation in the area of the right basal ganglia. Further evaluation with MRI of the brain with and without contrast is recommended. Pola Gonzalez MD Chest X-Ray 11/12/1618 Signed Impressions: Service Date/Time: October 00:48 - CONCLUSION: 1. Enlarged cardiopericardial silhouette. No focal infiltrate or effusion. Pola Gonzalez MD Head Magnetic Resonance Angiography 11/12/16 0000 Signed Impressions: Service Date/Time: October 08:10 - CONCLUSION: Tiny right cavernous carotid aneurysm. Herbie Clemens MD Brain MRI 11/12/16 0000 Signed Impressions: Service Date/Time: October 08:10 - CONCLUSION: Widespread demyelinating disease with plaques at varying stages of evolution, including areas of active enhancing inflammation. Herbie Clemens MD Objective Remarks No acute distress, lying in transport bed Barely notable facial droop on the left side today 4/5 proximal lower extremity strength on the left, 5 out of 5 on the right, A/P Assessment and Plan 21-year-old black male being admitted for progressive left-sided weakness - Progressive left-sided weakness neurology following. Lab workup has been essentially unremarkable whereas imaging is suggestive of multiple sclerosis. Will await MRI spine results as well as CSF workup. Continue PT and OT - Facial droop Secondary to above, somewhat improved, cleared for diet per speech Dane Zambrano MD Nov 13, 2016 10:31
--- NOTE | 2016-11-13 11:36 | RADRPT ---
EXAM DATE/TIME: 11/13/2016 09:50 [facility] COMPARISON: No previous studies available for comparison. INDICATIONS : Increasing left sided weakness over past 4 months. CONTRAST: 20 cc Omniscan (gadodiamide) IV MEDICAL HISTORY : None. SURGICAL HISTORY : None. ENCOUNTER: Subsequent ACUITY: 4-6 months PAIN SCORE: 0/10 LOCATION: neck TECHNIQUE: Multiplanar, multisequence MRI examination of the cervical spine was performed. FINDINGS: VERTEBRAE: Normal vertebral body height. Homogeneous marrow signal. ALIGNMENT: No evidence of subluxation. CORD: There is subtle increase in cord at the C3 level. POST FOSSA: The cerebellar tonsils are normal in position. POST-CONTRAST: No abnormal areas of enhancement are seen. C2-C3: The thecal sac has a normal configuration. There is no evidence of disc herniation or spinal canal stenosis. The neural foramina are patent bilaterally. C3-C4: The thecal sac has a normal configuration. There is no evidence of disc herniation or spinal canal s tenosis. The neural foramina are patent bilaterally. C4-C5: The thecal sac has a normal configuration. There is no evidence of disc herniation or spinal canal s tenosis. The neural foramina are patent bilaterally. C5-C6: The thecal sac has a normal configuration. There is no evidence of disc herniation or spinal canal s tenosis. The neural foramina are patent bilaterally. C6-C7: The thecal sac has a normal configuration. There is no evidence of disc herniation or spinal canal s tenosis. The neural foramina are patent bilaterally. C7-T1: The thecal sac has a normal configuration. There is no evidence of disc herniation or spinal canal s tenosis. The neural foramina are patent bilaterally. CONCLUSION: Some increased signal in the cord at C3 suspicious for demyelinating process. Lai Braswell MD FACR on November 13, 2016 at 11:33 Board Certified Radiologist. This report was verified electronically.
[2016-11-14 01:15] VITALS: BP 114/56; PULSE 65; RESP 17; TEMP 97.7; O2SAT 97
[2016-11-14 05:22] VITALS: BP 109/57; PULSE 69; RESP 17; TEMP 97.5; O2SAT 98
[2016-11-14] MEDS ORDERED: methylPREDNISolone SO SUCC INJ 1,000 MG in DEXTROSE 5% IN WATER 100ML INJ 100 ML IV SCH ×2 (08:00)
[2016-11-14 08:17] VITALS: BP 119/55; PULSE 67; RESP 20; TEMP 97.9; O2SAT 100
[2016-11-14] MEDS: SODIUM CHLORIDE 0.9% FLUSH 5 ML FLUSH IV FLUSH SCH ×2 (09:00→20:56)
--- NOTE | 2016-11-14 11:13 | MB ---
cc: AMI FRAGA MD DATE OF CONSULTATION: 11/13/16 REASON FOR CONSULTATION Questionable stroke with left-sided weakness. HISTORY OF PRESENT ILLNESS Mr. Tejada is a 21-year-old -Greek male who was admitted to the [facility] for progressive left-sided weakness that has been ongoing for three months. The patient states that he noticed progressive gradual weakness of the left upper and lower extremity over three months' duration. This was associated with occasional episodes of slurred speech and unsteadiness when walking and incoordination of the left upper extremity. The patient denies headache, visual loss, double vision, difficulty swallowing or chewing, neck pain, symptoms on the right side upper or lower extremity, shortness of breath. He reports that when he walks he stumbles mainly to the left side. He denies any sphincter control disturbances, history of stroke or seizures or other medical disorder. Over the last week he had some worsening of his left leg weakness. REVIEW OF SYSTEMS A 12-point review of systems is negative except for what is stated in the HPI. PAST MEDICAL HISTORY Noncontributory. PAST SURGICAL HISTORY Noncontributory ALLERGIES NO KNOWN ALLERGIES. FAMILY HISTORY No similar condition in the family. SOCIAL HISTORY Denies illicit drug abuse. Every other week occasionally he drinks alcohol. Denies smoking. PHYSICAL EXAMINATION GENERAL: Awake, alert, pleasant, a good historian, not in acute distress HEAD, EYES, EARS, NOSE AND THROAT: Atraumatic, normocephalic. Intact hearing. Intact vision. CARDIOVASCULAR: Regular, rate and rhythm. RESPIRATORY: Clear to auscultation. No wheeze. GASTROINTESTINAL: Soft abdomen, nontender. MUSCULOSKELETAL: Moves extremities. No deformity. No edema. NEUROLOGIC: Awake, alert, oriented to time, person and place. No dysarthria. No dysphagia. Intact naming. Intact repetition. Intact external ocular motility. No afferent pupillary defect between ducts, APD, no nystagmus. Intact facial sensation. Brisk jaw jerk. Right upper and lower extremity 5/5, no abnormal movement. The left upper extremity 5- shoulder abduction and wrist extension with intention tremor in past-pointing. Left lower extremity grade 5 - left hip flexion and left foot dorsiflexion. Abnormal dhgm-at-sdao test. Reflexes 2+ bilateral and symmetrical. Plantars left upgoing, right equivocal. Sensation intact bilateral and symmetrical to light touch, temperature. PSYCHIATRIC: Indifferent mood, pleasant, no hallucination. LABORATORY DATA White blood cells 10.6, hemoglobin 14.4, MCV 85.9, platelet 301, sed rate 2. Sodium 139, potassium 4.1, CO2 28.5, anion gap 6, BUN 6, creatinine 0.85, magnesium 2.2, alkaline phosphatase 50, total CK 95, C-reactive protein less than 0.29, TSH 1.92 normal. Lipid profile is normal. DIAGNOSTIC IMAGING - Head CT scan without contrast: Low-attenuation in the area of right basal ganglia. - Brain MRI with and without contrast: Revealed widespread demyelinating disease with plaques in varying stages of evolution including areas of active enhancing inflammation. - Head MRA: Right carotid artery aneurysm. DIAGNOSTIC IMPRESSION Possible multiple sclerosis given slowly progressive ataxia and weakness with brain lesion active and chronic. PLAN 1. Neuro checks Q 4 hourly. 2. Cervical spine MRI with and without contrast to evaluate for extension of the demyelinating lesions. 3. CSF for general chemistry, oligoclonal bands, myelin basic protein, IgG index , Lyme antibodies, VDRL, angiotensin converting enzyme levels. 4. DVT prophylaxis. 5. Fall precautions. 6. I explained to the patient with his mother at the bedside the nature of the clinical symptoms and the findings on the imaging and the further steps. They understand. 7. Start the patient on daily methylprednisone 1000 mg for three days[address] Castañeda will cover for the weekend. Thank you for the opportunity to participate in the care of your patient. MD DEBBI Dominguez/CHRISTAL /11:31 PM /10:24 AM YODIT
[2016-11-14 11:50] VITALS: BP 149/71; PULSE 72; RESP 20; TEMP 98.2; O2SAT 100
--- NOTE | 2016-11-14 14:10 | HHI.PR ---
Review/Management Diagnosis Multiple sclerosis Plan continue iv solumedrol LP Diagnosis/Plan: Subjective Subjective Comments No acute events reported tolerating solumedrol. No change in left sided weakness. Active Medications Current Medications Medications (Trade) Dose Ordered Sig/Maddy Route Start Time Stop Time Status Last Admin (NS Flush) 2 ml BID IV FLUSH 11/12/16 09:00 11/14/16 09:00 (NS Flush) 2 ml UNSCH PRN IV FLUSH 11/12/16 03:15 (D50w (Vial) Inj) 50 ml UNSCH PRN IV PUSH 11/12/16 03:15 (Glucagon Inj) 1 mg UNSCH PRN OTHER 11/12/16 03:15 Methylprednisolone Sodium Succinate 1000 mg/Dextrose 100 ml @ 200 mls/hr ONCE IV 11/14/16 08:00 11/16/16 08:00 11/14/16 11:24 Allergies Allergies Coded Allergies No Known Allergies (Verified11/12/16) Exam I&O / VS Vital Signs Date Time Temp Pulse Resp B/P (MAP) Pulse Ox O2 Delivery O2 Flow Rate FiO2 11/14/16 11:50 98.2 72 20 149/71 (97) 100 11/14/16 08:17 97.9 67 20 119/55 (76) 100 11/14/16 05:22 97.5 69 17 109/57 (74) 98 11/14/16 01:15 97.7 65 17 114/56 (75) 97 11/13/16 23:33 74 11/13/16 20:00 98.6 75 20 114/71 (85) 100 11/13/16 16:00 98.2 72 20 128/61 (83) 99 Exam Comments alert, oriented, normal speech CN -mild left facial weakness, EOM intact, PERRL MOTOR 4/5 LUE and LLE. 5/5 RUE and RLE Gait---wide based and ataxic. Louis Castañeda. PhD Nov 14, 2016 14:10
--- NOTE | 2016-11-14 15:37 | HHI.PR ---
Subjective Remarks Patient thinks his weakness is slightly improved today . Nursing denies any acute setbacks since last night . Objective Vital Signs Date Time Temp Pulse Resp B/P (MAP) Pulse Ox O2 Delivery O2 Flow Rate FiO2 11/14/16 11:50 98.2 72 20 149/71 (97) 100 11/14/16 08:17 97.9 67 20 119/55 (76) 100 11/14/16 05:22 97.5 69 17 109/57 (74) 98 11/14/16 01:15 97.7 65 17 114/56 (75) 97 11/13/16 23:33 74 11/13/16 20:00 98.6 75 20 114/71 (85) 100 11/13/16 16:00 98.2 72 20 128/61 (83) 99 I/O 11/13/16 11/13/16 11/13/16 11/14/16 11/14/16 11/14/16 07:00 15:00 23:00 07:00 15:00 23:00 Intake Total 1200 ml 720 ml 240 ml Balance 1200 ml 720 ml 240 ml Intake Oral 1200 ml 720 ml 240 ml # Voids 4 3 1 # Bowel Movements 0 Result Diagram: 11/12/16 0045 11/13/16 0619 Imaging Last Impressions Cervical Spine MRI 11/13/16 0000 Signed Impressions: Service Date/Time: Sunday, November 13, 2016 09:50 - CONCLUSION: Some increased signal in the cord at C3 suspicious for demyelinating process. Lai Braswell MD FACR Head CT 11/12/1618 Signed Impressions: Service Date/Time: October 00:59 - CONCLUSION: Low attenuation in the area of the right basal ganglia. Further evaluation with MRI of the brain with and without contrast is recommended. Pola Gonzalez MD Chest X-Ray 11/12/16 001 Signed Impressions: Service Date/Time: October 00:48 - CONCLUSION: 1. Enlarged cardiopericardial silhouette. No focal infiltrate or effusion. Pola Gonzalez MD Head Magnetic Resonance Angiography 11/12/16 0000 Signed Impressions: Service Date/Time: October 08:10 - CONCLUSION: Tiny right cavernous carotid aneurysm. Herbie Clemens MD Brain MRI 11/12/16 0000 Signed Impressions: Service Date/Time: October 08:10 - CONCLUSION: Widespread demyelinating disease with plaques at varying stages of evolution, including areas of active enhancing inflammation. Herbie Clemens MD Objective Remarks No acute distress, lying in transport bed Barely notable facial droop on the left side today 4/5 proximal lower extremity strength on the left, 5 out of 5 on the right, A/P Assessment and Plan 21-year-old black male being admitted for progressive left-sided weakness - Progressive left-sided weakness neurology following. Lab workup has been essentially unremarkable whereas imaging is suggestive of multiple sclerosis. Scattered demyelinating lesions noted on MRI spine and brain Started on Solu-Medrol today, LP is planned as well - Facial droop Secondary to above, somewhat improved, cleared for diet per speech Dane Zambrano MD Nov 14, 2016 15:37
[2016-11-14 17:05] VITALS: BP 103/67; PULSE 84; RESP 20; TEMP 98.4; O2SAT 98
[2016-11-14 20:23] VITALS: BP 129/66; PULSE 107; RESP 17; TEMP 98.8; O2SAT 97
[2016-11-15 00:30] VITALS: BP 119/67; PULSE 94; RESP 17; TEMP 98; O2SAT 96
[2016-11-15 04:47] VITALS: BP 122/56; PULSE 68; RESP 17; TEMP 98.1; O2SAT 96
[2016-11-15 08:08] VITALS: BP 121/62; PULSE 80; RESP 20; TEMP 97.3; O2SAT 97
[2016-11-15] MEDS: SODIUM CHLORIDE 0.9% FLUSH 5 ML FLUSH IV FLUSH SCH ×2 (09:00→21:00)
--- NOTE | 2016-11-15 11:20 | HHI.PR ---
Subjective Remarks Patient thinks his weakness is slightly improved today further in comparison to yesterday. Nursing denies any acute setbacks since last night . Objective Vital Signs Date Time Temp Pulse Resp B/P (MAP) Pulse Ox O2 Delivery O2 Flow Rate FiO2 11/15/16 08:08 97.3 80 20 121/62 (81) 97 11/15/16 04:47 98.1 68 17 122/56 (78) 96 11/15/16 00:30 98.0 94 17 119/67 (84) 96 11/14/16 20:23 98.8 107 17 129/66 (87) 97 11/14/16 17:05 98.4 84 20 103/67 (79) 98 11/14/16 11:50 98.2 72 20 149/71 (97) 100 I/O 11/14/16 11/14/16 11/14/16 11/15/16 11/15/16 11/15/16 07:00 15:00 23:00 07:00 15:00 23:00 Intake Total 240 ml 720 ml 480 ml Balance 240 ml 720 ml 480 ml Intake Oral 240 ml 720 ml 480 ml # Voids 1 3 3 Result Diagram: 11/12/16 0045 11/13/16 0619 Objective Remarks No acute distress No facial droop noted today 4/5 proximal lower extremity strength on the left, 5 out of 5 on the right, 5 out of 5 lower extremity strength bilaterally A/P Assessment and Plan 21-year-old black male being admitted for progressive left-sided weakness - Progressive left-sided weakness neurology following. Lab workup has been essentially unremarkable whereas imaging is suggestive of multiple sclerosis. Suspect multiple sclerosis Day 2 of 3 of high-dose Solu-Medrol, LP is planned (to obtain CSF fluid to rule out other etiologies) as well for tomorrow after clarification with neurology given that it is the weekend PT and OT following - Facial droop Almost resolved, secondary to above Dane Zambrano MD Nov 15, 2016 11:20
[2016-11-15 11:48] VITALS: BP 132/69; PULSE 82; RESP 20; TEMP 98; O2SAT 99
[2016-11-15 16:21] VITALS: BP 125/70; PULSE 72; RESP 20; TEMP 98.5; O2SAT 97
[2016-11-15 20:26] VITALS: BP 109/57; PULSE 73; RESP 17; TEMP 97.6; O2SAT 99
[2016-11-15] MEDS ORDERED: methylPREDNISolone SO SUCC INJ 1,000 MG in DEXTROSE 5% IN WATER 100ML INJ 100 ML IV ONE ×2 (22:00)
[2016-11-16 01:17] VITALS: BP 119/71; PULSE 71; RESP 17; TEMP 98; O2SAT 99
[2016-11-16 05:38] VITALS: BP 119/62; PULSE 66; RESP 17; TEMP 98; O2SAT 96
[2016-11-16] MEDS: SODIUM CHLORIDE 0.9% FLUSH 5 ML FLUSH IV FLUSH SCH ×2 (08:13→22:12)
[2016-11-16 08:35] VITALS: BP 119/61; PULSE 68; RESP 20; TEMP 97.7; O2SAT 96
--- NOTE | 2016-11-16 10:46 | PD.RAD ---
Post Procedure Progress Note Pre Procedure Diagnosis: (1) Left arm weakness (2) Distal muscle weakness Post Procedure Diagnosis: (1) Tinea pedis of left foot (2) Left arm weakness Procedure Date: Nov 16, 2016 Supervising Radiologist: Garry Adams Proceduralist/Assist: Alix Mcneil, RT(R)(CV), Alex Roth, RT(R) Anesthesia: Local Plan of Activity Patient to Unit: Nursing Unit Patient Condition: Good See PACS Report for procedural detail/treatment Spinal Procedure Lumbar Puncture L3-L4 Fluid Removal (CCs): 16 Fluid Description: Clear Puncture Time: 10:17 Garry Adams MD Nov 16, 2016 10:46
[2016-11-16 11:40] LABS: CSF LYMPHOCYTES 93 %; CSF MONOCYTES 7 %
[2016-11-16 11:42] LABS: CSF LYMPHOCYTES 96 %; CSF MONOCYTES 3 %; CSF NEUTROPHILS 1 %
[2016-11-16 11:46] LABS: GROSS BLOOD TUBE #2 0 (0); SUPERNATE COLOR TUBE #1 CLEAR (CLEAR); SUPERNATE COLOR TUBE #2 CLEAR (CLEAR); VOLUME TUBE # 1 2.2 ML; WBC TUBE #1 18 /MM3 (0-10)
[2016-11-16 11:47] LABS: GROSS BLOOD TUBE #3 0 (0); GROSS BLOOD TUBE #4 0 (0); SUPERNATE COLOR TUBE #3 CLEAR (CLEAR); SUPERNATE COLOR TUBE #4 CLEAR (CLEAR); VOLUME TUBE # 4 6.5 ML
[2016-11-16 11:48] LABS: GROSS BLOOD TUBE #4 0 (0); WBC TUBE #4 30 /MM3 (0-10)
[2016-11-16 11:49] LABS: CSF NEUTROPHILS 0 %; GROSS BLOOD TUBE #1 0 (0)
[2016-11-16 12:14] VITALS: BP 127/68; PULSE 65; RESP 20; TEMP 98.2; O2SAT 95
--- NOTE | 2016-11-16 12:35 | RADRPT ---
EXAM DATE/TIME: 11/16/2016 09:19 [facility] COMPARISON: No previous studies available for comparison. INDICATIONS : Patient presents with left sided weakness in need of lumbar puncture for possible multiple sclerosis. MEDICAL HISTORY : None documented SURGICAL HISTORY : None documented ENCOUNTER: Initial ACUITY: 4 -6 days PAIN SCORE: 0/10 LOCATION: N/A LUMBAR PUNCTURE TIME: 1017 hours FLUORO TIME: 1.6 minutes IMAGE SERIES: 1 ACCESS LEVEL: L3-4 FLUID: 16 cc of clear CSF was collected and sent to the laboratory for analysis. PROCEDURE : 1. Fluoroscopic guided lumbar puncture. The risks, benefits and alternatives to the procedure were explained and verbal and written consent w as obtained. The site was prepped in sterile fashion. Full sterile technique was used, including ca p, mask, sterile gloves and gown and a large sterile sheet. Hand hygiene and 2% chlorhexidine and/or betadine/alcohol prep was utilized per protocol for cutaneous antisepsis. The skin and subcutaneous tissues were infiltrated with local anesthetic solution. With fluoroscopic guidance the lumbar thecal sac was punctured at the level above. The fluid describ ed above was removed without difficulty. The patient tolerated the procedure well and there were no complications. CONCLUSION: Uncomplicated fluoroscopically guided lumbar puncture. Garry Adams MD on November 16, 2016 at 12:33 Board Certified Radiologist. This report was verified electronically.
[2016-11-16 15:46] VITALS: BP 128/76; PULSE 90; RESP 20; TEMP 98.4; O2SAT 100
--- NOTE | 2016-11-16 16:18 | HHI.PR ---
Review/Management Diagnosis - Multiple sclerosis - Head CT scan without contrast: Low-attenuation in the area of right basal ganglia. - Brain MRI with and without contrast: Revealed widespread demyelinating disease with plaques in varying stages of evolution including areas of active enhancing inflammation. - Head MRA: Right carotid artery aneurysm. Plan - Neuro checks Q 4 hourly. - S/P LP, pending results - DVT prophylaxis. - Fall precautions. - Patient will receive the third and last dose of IV Solumerdol tomorrow - Follow up as outpatient with neurology - I discussed the case with Dr. Zambrano, the attending physician - Please call for questions Diagnosis/Plan: Subjective Subjective Comments Patient states that he " feels a little bit better", no reported acute events Complains of hiccup, may be related to steroid use Cervical spine revealed a suspicious demyelinating lesion at C3 Received two doses of iv Methylprednisone S/P LP today, uneventful,pending results Active Medications Current Medications Medications (Trade) Dose Ordered Sig/Maddy Route Start Time Stop Time Status Last Admin (NS Flush) 2 ml BID IV FLUSH 11/12/16 09:00 11/16/16 08:13 (NS Flush) 2 ml UNSCH PRN IV FLUSH 11/12/16 03:15 (D50w (Vial) Inj) 50 ml UNSCH PRN IV PUSH 11/12/16 03:15 (Glucagon Inj) 1 mg UNSCH PRN OTHER 11/12/16 03:15 Methylprednisolone Sodium Succinate 1000 mg/Dextrose 116 ml @ 38.667 mls/ hr DAILY@2100 IV 11/16/16 21:00 11/17/16 23:59 Allergies Allergies Coded Allergies No Known Allergies (Verified11/12/16) Review of Systems All other ROS: ROS reviewed as documented in chart Exam I&O / VS 11/16/16 11/16/16 11/17/16 14:59 22:59 06:59 Intake Total 480 ml Balance 480 ml Intake Oral 480 ml # Voids 2 Vital Signs Date Time Temp Pulse Resp B/P (MAP) Pulse Ox O2 Delivery O2 Flow Rate FiO2 11/16/16 15:46 98.4 90 20 128/76 (93) 100 11/16/16 12:14 98.2 65 20 127/68 (87) 95 11/16/16 08:35 97.7 68 20 119/61 (80) 96 11/16/16 05:38 98.0 66 17 119/62 (81) 96 11/16/16 01:17 98.0 71 17 119/71 (87) 99 11/15/16 20:26 97.6 73 17 109/57 (74) 99 11/15/16 16:21 98.5 72 20 125/70 (88) 97 Exam Comments GENERAL: Awake, alert, pleasant, a good historian, not in acute distress HEAD, EYES, EARS, NOSE AND THROAT: Atraumatic, normocephalic. Intact hearing and vision. CARDIOVASCULAR: Regular, rate and rhythm. RESPIRATORY: Clear to auscultation. No wheeze. GASTROINTESTINAL: Soft abdomen, nontender. MUSCULOSKELETAL: Moves extremities. No deformity. No edema. NEUROLOGIC: Awake, alert, oriented to time, person and place. No dysarthria. No dysphasia. Intact naming. Intact repetition. Intact external ocular motility. No afferent pupillary defect [APD], no nystagmus. Intact facial sensation. Brisk jaw jerk. Right upper and lower extremity 5/5, no abnormal movement. The left upper extremity 5- shoulder abduction and wrist extension with intention tremor in past-pointing. Left lower extremity grade 5- left hip flexion and left foot dorsiflexion. Abnormal [id number] test. Reflexes 2+ bilateral and symmetrical. Plantars left upgoing, right equivocal. Sensation intact bilateral and symmetrical to light touch, temperature. PSYCHIATRIC: Indifferent mood, ? euphoric pleasant, no hallucination. Objective Radiology Results Last 72 hours Impressions Lumbar Puncture Fluoroscopy 11/16/16 0000 Signed Impressions: Service Date/Time: Wednesday, November 16, 2016 09:19 - CONCLUSION: Uncomplicated fluoroscopically guided lumbar puncture. Garry Adams MD Micro and Labs Laboratory Tests Test 11/16/16 10:17 CSF Volume (Tube 1) 2.2 CSF Supernatant Color (tube 1) CLEAR CSF Gross Blood (Tube 1) 0 CSF WBC (Tube 1) 18 CSF RBC (Tube 1) 28 CSF Volume (Tube 2) 3.0 CSF Supernatant Color (tube 2) CLEAR CSF Gross Blood (Tube 2) 0 CSF Volume (Tube 3) 3.0 CSF Supernatant Color (tube 3) CLEAR CSF Gross Blood (Tube 3) 0 CSF Volume (Tube 4) 6.5 CSF Supernatant Color (tube 4) CLEAR CSF Gross Blood (Tube 4) 0 CSF WBC (Tube 4) 30 CSF RBC (Tube 4) 0 CSF Neutrophils 1 CSF Lymphocytes 96 CSF Monocytes 3 CSF Glucose 87 CSF Total Protein 48.4 Marlo Jeffries MD Nov 16, 2016 16:18
[2016-11-16 20:00] VITALS: BP 146/76; PULSE 66; RESP 18; TEMP 98; O2SAT 96
--- NOTE | 2016-11-16 20:45 | HHI.PR ---
Subjective Remarks pt thinks his weakness is better. Nursing denies any setbacks since last night, LP scheduled for today. Objective Vital Signs Date Time Temp Pulse Resp B/P (MAP) Pulse Ox O2 Delivery O2 Flow Rate FiO2 11/16/16 15:46 98.4 90 20 128/76 (93) 100 11/16/16 12:14 98.2 65 20 127/68 (87) 95 11/16/16 08:35 97.7 68 20 119/61 (80) 96 11/16/16 05:38 98.0 66 17 119/62 (81) 96 11/16/16 01:17 98.0 71 17 119/71 (87) 99 I/O 11/15/16 11/15/16 11/15/16 11/16/16 11/16/16 11/16/16 07:00 15:00 23:00 07:00 15:00 23:00 Intake Total 480 ml 960 ml 836 ml 480 ml Balance 480 ml 960 ml 836 ml 480 ml Intake Oral 480 ml 960 ml 720 ml 480 ml IV Total 116 ml # Voids 3 3 4 2 # Bowel Movements 1 Result Diagram: 11/12/16 0045 11/13/16 0619 Objective Remarks No acute distress No facial droop noted today 4/5 proximal lower extremity strength on the left, 5 out of 5 on the right, 5 out of 5 lower extremity strength bilaterally A/P Assessment and Plan 21-year-old black male being admitted for progressive left-sided weakness - Progressive left-sided weakness neurology following. Lab workup has been essentially unremarkable whereas imaging is suggestive of multiple sclerosis. Suspect multiple sclerosis Is status post lumbar puncture, last dose of Solu-Medrol as anticipated to be completed by tomorrow. D/w neurology, no steroids upon discharge. - Facial droop resolved Dane Zambrano MD Nov 16, 2016 20:45
[2016-11-16] MEDS ORDERED: methylPREDNISolone SO SUCC INJ 1,000 MG in DEXTROSE 5% IN WATER 100ML INJ 100 ML IV SCH ×2 (21:00)
[2016-11-16] MEDS ORDERED: PANTOPRAZOLE SODIUM 40 MG VIAL IV PUSH ONE (22:30)
[2016-11-17] VITALS: BP 142/74; PULSE 68; RESP 18; TEMP 98.2; O2SAT 96
[2016-11-17 04:00] VITALS: BP 129/60; PULSE 53; RESP 18; TEMP 97.3; O2SAT 97
[2016-11-17] MEDS: SODIUM CHLORIDE 0.9% FLUSH 5 ML FLUSH IV FLUSH SCH (08:01)
[2016-11-17 08:45] VITALS: BP 114/55; PULSE 60; RESP 20; TEMP 97.8; O2SAT 97
[2016-11-17] MEDS ORDERED: PANTOPRAZOLE SOD 40 MG DELAYED RELEASE TAB PO SCH (09:00)
[2016-11-17 12:44] VITALS: BP 127/58; PULSE 64; RESP 20; TEMP 98.2; O2SAT 97
[2016-11-17 14:56] LABS: IGG CSF 8.1 mg/dL (<=8.1); IGG INDEX CSF 0.78 (<=0.85); IGG/ALBUMIN CSF 0.32 (<=0.21); IGG/ALBUMIN SERUM 0.41 (<=0.40); SYNTHESIS RATE CSF 15.83 mg/24 h (<=12)
[2016-11-17 16:00] VITALS: BP 129/64; PULSE 58; RESP 20; TEMP 98.7; O2SAT 96
--- NOTE | 2016-11-17 16:43 | HHI.DCPOC ---
Discharge Care Plan Diagnosis: (1) Multiple sclerosis Goals to Promote Your Health * To prevent worsening of your condition and complications * To maintain your health at the optimal level Avoid driving or operating any heavy machinery until seen again by neurology as outpatient. Directions to Meet Your Goals Take your medications as prescribed Follow your dietary instruction Follow activity as directed Keep your appointments as scheduled Take your immunizations and boosters as scheduled If your symptoms worsen call your PCP, if no PCP go to Urgent Care Center or Emergency Room Smoking is Dangerous to Your Health. Avoid second hand smoke Call the 24-hour hour crisis hotline for domestic abuse at Dane Zambrano MD Nov 17, 2016 16:43
--- NOTE | 2016-11-17 16:51 | HHI.DS ---
Discharge Summary Admission Date Nov 12, 2016 at 02:58 Discharge Date: Nov 17, 2016 Admitting Diagnosis Progressive neurologic symptoms (1) Multiple sclerosis ICD Code: G35 - Multiple sclerosis Diagnosis: Principal Status: Acute Procedures LP - CSF studies ordered. Brief History - From Admission 21-year-old black male being admitted for progressive left-sided weakness. Patient was in his usual state of health until about 1 week ago when he began noticing worsening left leg weakness and difficulty walking. This problem originally emerged earlier about 3 months ago in July per the patient. Says that he was referred to a neurologist and then referred for outpatient MRI imaging which he was not able to obtain due to loss of insurance. About one week ago he reports having worsening weakness of his left leg, namely the thigh and calf. Says that he can crank his ankles and toes just fine; but does note difficulty walking while leaning towards his left side and says that he does not feel like he can walk steadily, reports near falls consequently. This is also associated with mild left arm weakness which she says he notices while he is showering and also was informed that his lips were "turning in" by his mother. He reports that he has some uncontrolled drooling when he drinks liquids, but denies any issues with choking or coughing while ingesting liquids and or solids. He also reports intermittent blurry vision that has also been picking up frequency since one week ago. Denies any new headaches, nausea, vomiting, fevers, chills, changes in sensation, burning or tingling pain. Denies taking any medications to treat symptoms. Patient has a very subtle resting tremor in both hands, when asked about this, he says this is something he's had lifelong. CBC/BMP: 11/13/16 0619 Significant Findings Laboratory Tests Test 11/16/16 10:17 CSF WBC (Tube 1) 18 /MM3 (0-10) CSF RBC (Tube 1) 28 /MM3 (NONE) CSF WBC (Tube 4) 30 /MM3 (0-10) CSF Glucose 87 MG/DL (40-80) CSF Total Protein 48.4 MG/DL (15.0-45.0) Serum IgG/Albumin Ratio 0.41 (<=0.40) CSF IgG/Albumin Ratio 0.32 (<=0.21) CSF Immunoglobulin G Synthesis Rate 15.83 mg/24 h (<=12) Imaging Last Impressions Lumbar Puncture Fluoroscopy 11/16/16 Signed Impressions: Service Date/Time: Wednesday, November 16, 2016 09:19 - CONCLUSION: Uncomplicated fluoroscopically guided lumbar puncture. Garry Adams MD Cervical Spine MRI 11/13/16 Signed Impressions: Service Date/Time: Sunday, November 13, 2016 09:50 - CONCLUSION: Some increased signal in the cord at C3 suspicious for demyelinating process. Lai Braswell MD FACR Head CT 11/12/1618 Signed Impressions: Service Date/Time: October 00:59 - CONCLUSION: Low attenuation in the area of the right basal ganglia. Further evaluation with MRI of the brain with and without contrast is recommended. Pola Gonzalez MD Chest X-Ray 11/12/1618 Signed Impressions: Service Date/Time: October 00:48 - CONCLUSION: 1. Enlarged cardiopericardial silhouette. No focal infiltrate or effusion. Pola Gonzalez MD Head Magnetic Resonance Angiography 11/12/16 Signed Impressions: Service Date/Time: October 08:10 - CONCLUSION: Tiny right cavernous carotid aneurysm. Herbie Clemens MD Brain MRI 11/12/16 Signed Impressions: Service Date/Time: October 08:10 - CONCLUSION: Widespread demyelinating disease with plaques at varying stages of evolution, including areas of active enhancing inflammation. Herbie Clemens MD PE at Discharge 5 out of 5 strength proximal upper and lower extremity is bilaterally, No facial droop Hospital Course Patient was admitted, neurology had been consulted. MRI findings of the head and spine were suggestive of multiple sclerosis. Patient was therefore started on Solu-Medrol dosing via IV for 3 days. He also had a lumbar puncture done with further CSF studies which did suggest multiple sclerosis as well. Remaining CSF studies result after discharge. Patient's clinical symptoms had improved significantly with heavy steroid dosing. He was advised to completely refrain from driving or operating any heavy machinery. Patient has met maximum benefit from hospitalization and is clinically stable for discharge. He is to follow with urology outpatient.. Pt Condition on Discharge: Stable Discharge Disposition: Discharge Home Discharge Time: > 30 minutes Discharge Instructions DIET: Follow Instructions for: As Tolerated, No Restrictions Speech Therapy-Diet Recommends: Regular Activities you can perform: Weight Bearing as Eliceo Other Activity Instructions: No driving or operating any heavy machinery Follow up Referrals: Neurology - 10 Days with Marlo Jeffries MD Discontinued Medications: Amoxicillin (Amoxicillin) 875 Mg Tab 875 MG PO BID for Infection, #20 TAB 0 Refills Dane Zambrano MD Nov 17, 2016 16:51
[2016-11-17] MEDS ORDERED: methylPREDNISolone SO SUCC INJ 1,000 MG in DEXTROSE 5% IN WATER 100ML INJ 100 ML IV ONE ×2 (17:15)
[2016-11-17 20:35] VITALS: BP 135/72; PULSE 67; RESP 18; TEMP 97.8; O2SAT 97
[2016-11-18 15:22] LABS: LYME IGG IMMUNOBLOT CSF None Detected bands (None Detected); LYME IGM IMMUNOBLOT CSF None Detected bands (None Detected)
[2016-11-18 15:43] LABS: OLIGOCLONAL BANDING CSF 9 bands; OLIGOCLONAL BANDING INTERPRET 8 bands (<4); OLIGOCLONAL BANDING SERUM 1 bands
[2016-11-18 19:50] LABS: VDRL CSF NON-REACTIVE (NON-REACTVE)
[2016-11-19 19:51] LABS: CSF ANGIOTENSIN CONV ENZYME LESS THAN 5 U/L (< OR = 15)
== END 2016-11-17 22:08 | disposition home or self-care (01) | DRG 60 ==
LOC: NEPC 23:19 → NEDA 11-12 02:58 → NEPFCDU 11-12 04:13 → N05B 11-12 16:43
PROVIDERS: ADMIT Hospitalist; ATTEND Hospitalist
PROC: 009U3ZX Drainage of Spinal Canal, Percutaneous Approach, Diagnostic (ICD-10-PCS; principal; 2016-11-16)
DX: G35 Multiple sclerosis (principal); I72.0 Aneurysm of carotid artery; R26.2 Difficulty in walking, not elsewhere classified; R29.810 Facial weakness; R47.81 Slurred speech; R06.6 Hiccough; H53.8 Other visual disturbances; R25.1 Tremor, unspecified
CPT/HCPCS: 62270; 70450; 70544; 70553; 71010; 72156; 77003; 80048; 80053; 80061; 80307; 82040; 82042; 82164; 82550; 82784; 82945; 83036; 83735; 83873; 83916; 84100; 84157; 84443; 85025; 85610; 85652; 85730; 86140; 86592; 86618; 89051; 93005; A9579; C9113; J2930; J7030

== ENCOUNTER 2017-03-04 10:16 | Emergency (ER) | payer OTHER ==
[~2017-03-04] VITALS: Ht 170.2 cm; Wt 111.0 kg
[2017-03-04 10:17] VITALS: BP 138/87; PULSE 73; RESP 16; TEMP 99.1; O2SAT 99
[2017-03-04] MEDS ORDERED: DIME120C PO (10:56)
[2017-03-04] MEDS ORDERED: IBUPROFEN 800 MG TAB PO ONE (11:30)
[2017-03-04] MEDS ORDERED: METHOCARBAMOL 500 MG TAB PO ONE (11:30)
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
[2017-03-04] MEDS ORDERED: ROBA500T PO (12:12)
[2017-03-04] MEDS ORDERED: IBUP1TAB7 PO (12:12)
[2017-03-04 12:37] VITALS: RESP 20
== END 2017-03-04 12:44 | disposition home or self-care (01) ==
LOC: NEPK 10:16
DX: S89.92XA Unspecified injury of left lower leg, initial encounter (principal); M25.561 Pain in right knee; M54.5 Low back pain; V43.52XA Car driver injured in collision with other type car in traffic accident, initial encounter
CPT/HCPCS: 73564; 99283

== ENCOUNTER 2018-01-09 23:38 | Inpatient (IN) ==
[2018-01-10] MEDS ORDERED: Sodium Chlor 0.9% Inj 500 ML IV.SIG ONE (00:50)
--- NOTE | 2018-01-10 01:12 | XR ---
EXAM DATE: 01/10/2018 1:09 AM EST AGE/SEX: 22 years / Male INDICATIONS: Right sided body pain with history of multiple sclerosis. CLINICAL DATA: This is the patient's initial encounter. Patient reports that signs and symptoms have been present for 1 day and indicates a pain score of 6/10. MEDICAL/SURGICAL HISTORY: Multiple sclerosis. None. COMPARISON: No prior exams available for comparison. FINDINGS: A single AP view of the chest demonstrates the lungs to be symmetrically aerated without evidence of mass, infiltrate or effusion. The cardiomediastinal contours are unremarkable. Osseous structures a re intact. CONCLUSION: Negative examination. Electronically signed by: Pola Gonzalez MD 01/10/2018 1:10 AM EST
[2018-01-10 01:32] LABS: Baso # (Auto) 0.1 th/mm3 (0.0-0.2); Baso % (Auto) 0.5 % (0.0-2.0); Eos # (Auto) 0.4 th/mm3 (0.0-0.4); Eos % (Auto) 3.7 % (0.0-4.0); Hematocrit 45.2 % (39.0-51.0); Hemoglobin 15.2 gm/dL (13.0-17.0); Mean Corpuscular HGB Conc 33.7 % (32.0-36.0); Mean Corpuscular Hemoglobin 29.4 pg (27.0-34.0); Mean Corpuscular Volume 87.2 fL (80.0-100.0); Mean Platelet Volume 7.4 fL (7.0-11.0); Mono # (Auto) 0.5 th/mm3 (0.0-0.9); Mono % (Auto) 4.5 % (0.0-8.0); Neut # (Auto) 5.2 th/mm3 (1.8-7.7); Neut % (Auto) 51.3 % (16.0-70.0); Platelet Count 272 th/mm3 (150-450); Red Blood Count 5.18 mil/mm3 (4.50-5.90); Red Cell Distribution Width 13.2 % (11.6-17.2); White Blood Count 10.1 th/mm3 (4.0-11.0)
[2018-01-10 01:48] LABS: Activated Partial Thrombo Time 28.5 sec (23.4-31.7)
[2018-01-10] MEDS ORDERED: MethylPREDNISolone Sod Succinate Inj 125 MG/2 ML Vial IV.PUSH ONE (01:51)
--- NOTE | 2018-01-10 01:51 | ED ---
HPI General Chief complaint: Medical Clearance Stated complaint: Medical Time Seen by Provider: 01/10/18 00:14 Source: patient Mode of arrival: ambulatory Limitations: no limitations History of Present Illness HPI narrative: The patient is a 22 year old male who presents to the [facility] emergency department with a history of weakness to the right upper and right lower extremity associated with tremor to the right upper extremity that began approximately 4 days ago. He reports that the symptoms are similar to what he experienced on the left side when he was first diagnosed with multiple sclerosis in November 2016. He reports that he lost his insurance approximately a month ago and no longer is able to see his neurologist. He reports that he has not been on any medications for multiple sclerosis as he was unable to afford them. He reports that he is developed increasing progressive weakness and tremor to the left upper extremity. The patient reports that over the last 2 days he has had urinary frequency, however he denies having any dysuria, urinary urgency, or polydipsia. He denies having a primary care physician. He reports that he was previously being followed by Dr. Parnell, for his neurologic care as an outpatient. The patient is requesting that steroids be administered as he reports that these have helped in the past. On review of systems otherwise, the patient denies having any facial droop, difficulty with word finding ability, new vision changes, recent fevers, cough, congestion, neck pain , chest pain, shortness of breath, abdominal pain, vomiting, or diarrhea. Related Data Home Medications Medication Instructions Recorded Confirmed No Known Home Medications 01/10/18 01/10/18 Allergies Allergy/AdvReac Type Severity Reaction Status Date / Time No Known Allergies Unknown Uncoded 03/04/17 10:55 Review of Systems ROS: all other systems reviewed are negative PMFSH Surgical History Surgical History No history of previous surgery (Acute) Family History Family History Other No pertinent family history Social History Social History Substance History: Active Abuse Second Hand Smoke Exposure: No Smoking Status: Never smoker How Often Do You Have a Drink Containing Alcohol: Never Recent Travel in [facility] within the Last 8 Weeks: No Recent Out of Country Travel within the Last 8 Weeks: No Immunization History Tetanus Immunization: Unsure Exam Const General: cooperative, no acute distress and well developed Nutritional Appearance: well nourished Orientation: alert, awake and oriented x3 HENMT Head: normocephalic and atraumatic Nose: no nasal discharge and no epistaxis Mouth: moist mucous membranes Eyes Sclera: normal sclerae Pupils: PERRL Neck Neck: no meningeal signs, trachea midline and no JVD Resp Effort & Inspection: no use of accessory muscles Auscultation: clear to auscultation bilaterally Cardio Rate: regular rate Rhythm: regular rhythm Heart Sounds: no murmurs GI Inspection: non-distended Palpation: soft, no hepatosplenomegaly and nontender Back/Spine/Pelvis Back: no CVA tenderness Skin General: dry skin (warm) Neuro General: alert, awake and oriented x3 Cranial Nerves: CN's II-XI intact bilaterally Speech: speech normal Motor: tremor (Tremor is noted that is worse in the left upper extremity compared to the right. This is a resting tremor that is worsened with activity. ) and strength abnormal (5/5 strength in bilateral upper and lower extremities, slight weakness of the right lower extremity compared to left on exam.) Sensory Exam: no sensory deficits noted Extrem General: normal to inspection, no calf tenderness, no clubbing, no cyanosis and no edema Psych Mood: congruent mood Affect: normal affect Judgment: judgment good Course Initial Documented Vital Signs Temperature 97.5 F L 01/09/18 23:55 Pulse Rate 72 01/09/18 23:55 Respiratory Rate 20 01/09/18 23:55 Blood Pressure 135/70 01/09/18 23:55 Pulse Oximetry 100 01/09/18 23:55 Last Documented Vital Signs Temperature 98.1 F 01/10/18 20:00 Pulse Rate 83 01/10/18 20:00 Respiratory Rate 20 01/10/18 20:00 Blood Pressure 138/65 01/10/18 20:00 Pulse Oximetry 98 01/10/18 20:00 Medical Decision Making MDM Narrative Medical decision making narrative: During the course of the patient's emergency department visit, the patient's history, examination, and differential diagnosis were reviewed with the patient. The patient was placed on a gambling monitor with oximetry and frequent blood pressure monitoring. The patient had IV access obtained and blood work sent for analysis. Diagnostic evaluation was started regarding the patient's worsening neurologic symptoms The patient was initially provided Solu-Medrol 125 mg IV. The patient's diagnostic evaluation is remarkable for a normal white count at 10.1, hemoglobin 15.2, platelets 272 with a normal differential, PT 10, PTT 28.5 , chemistry is remarkable for an anion gap of 3, troponin I is less than 0.02, lipase within normal limits. Urinalysis shows 2 urobilinogen few mucus, otherwise unremarkable. CHEST X-RAY: Showed no acute abnormality. CT scan of the brain showed no acute abnormality, large retention cyst in the left maxillary sinus. The patient will be admitted to the hospital for continued evaluation and treatment of an acute MS exacerbation. The patient's case including history, pertinent physical examination findings, and laboratory studies were discussed with Dr. Drake. It was agreed that the patient would be admitted to the [facility] hospitalist service. The patient's results were discussed with the patient, including the plan of care. I explained that further testing and/ or monitoring is indicated based on the patient's history, examination, and/ or laboratory findings. Therefore, I recommended admission for additional evaluation. The patient expressed understanding and was agreeable with this plan. The patient was admitted to the hospital in guarded condition and sent to a bed under the care of the [facility] hospitalist service. Medical Screen Exam Complete: Yes Emergency Medical Condition: Yes Differential Diagnosis Differential Diagnosis: Intracranial abnormality, versus multiple sclerosis exacerbation, versus stroke Medical Records Medical records reviewed: Yes I reviewed the patient's medical records. Lab Data Lab results reviewed: Yes I reviewed the patient's lab results. Result diagrams: 01/10/18 01:20 01/10/18 01:20 Lab Results 01/10/18 01/10/18 01/10/18 Range/Units 01:20 01:20 01:20 WBC 10.1 (4.0-11.0) th/mm3 RBC 5.18 (4.50-5.90) mil/mm3 Hgb 15.2 (13.0-17.0) gm/dL Hct 45.2 (39.0-51.0) % MCV 87.2 (80.0-100.0) fL MCH 29.4 (27.0-34.0) pg MCHC 33.7 (32.0-36.0) % RDW 13.2 (11.6-17.2) % Plt Count 272 (150-450) th/mm3 MPV 7.4 (7.0-11.0) fL Neut % (Auto) 51.3 (16.0-70.0) % Lymph % (Auto) 40.0 (9.0-44.0) % Redwood % (Auto) 4.5 (0.0-8.0) % Eos % (Auto) 3.7 (0.0-4.0) % Baso % (Auto) 0.5 (0.0-2.0) % Neut # (Auto) 5.2 (1.8-7.7) th/mm3 Lymph # (Auto) 4.0 (1.0-4.8) th/mm3 Redwood # (Auto) 0.5 (0.0-0.9) th/mm3 Eos # (Auto) 0.4 (0.0-0.4) th/mm3 Baso # (Auto) 0.1 (0.0-0.2) th/mm3 WBC Differential . Differential Comment Auto diff final PT 10.0 (9.8-11.6) sec INR 1.0 Ratio APTT 28.5 (23.4-31.7) sec Sodium 140 (136-145) meq/L Potassium 4.3 (3.5-5.1) meq/L Chloride 105 (98-107) meq/L Carbon Dioxide 31.7 (21.0-32.0) meq/L Anion Gap 3 L (5-15) meq/L BUN 12 (7-18) mg/dL Creatinine 1.03 (0.60-1.30) mg/dL Estimated GFR Greater than 89 (>89) mL/min Random Glucose 90 (74-106) mg/dL Calcium 8.9 (8.5-10.1) mg/dL Magnesium 2.3 (1.5-2.5) mg/dL Total Bilirubin 0.2 (0.2-1.0) mg/dL AST 17 (15-37) U/L ALT 21 (12-78) U/L Alkaline Phosphatase 57 (45-117) U/L Troponin I Less than 0.02 L (0.02-0.05) ng/mL Total Protein 7.8 (6.4-8.2) g/dL Albumin 3.9 (3.4-5.0) g/dL Lipase 111 (73-393) U/L Urine Color (Yellw/Straw) Urine Clarity (Clear) Urine pH (5.0-8.5) Ur Specific [employer] (1.002-1.035) Urine Protein (Neg-Trace) mg/dL Urine Glucose (UA) (Negative) mg/dL Urine Ketones (Negative) mg/dL Urine Occult Blood (Negative) Urine Nitrate (Negative) Urine Bilirubin (Negative) Urine Urobilinogen (Less than 2) mg/dL Ur Leukocyte Esterase (Negative) Urine RBC (0-3) /hpf Urine WBC (0-5) /hpf Urine Mucus (Occasional) /lpf Micro UA Comment Ur Microscopic Review Urine Culture Comments 01/10/18 Range/Units 04:40 WBC (4.0-11.0) th/mm3 RBC (4.50-5.90) mil/mm3 Hgb (13.0-17.0) gm/dL Hct (39.0-51.0) % MCV (80.0-100.0) fL MCH (27.0-34.0) pg MCHC (32.0-36.0) % RDW (11.6-17.2) % Plt Count (150-450) th/mm3 MPV (7.0-11.0) fL Neut % (Auto) (16.0-70.0) % Lymph % (Auto) (9.0-44.0) % Redwood % (Auto) (0.0-8.0) % Eos % (Auto) (0.0-4.0) % Baso % (Auto) (0.0-2.0) % Neut # (Auto) (1.8-7.7) th/mm3 Lymph # (Auto) (1.0-4.8) th/mm3 Redwood # (Auto) (0.0-0.9) th/mm3 Eos # (Auto) (0.0-0.4) th/mm3 Baso # (Auto) (0.0-0.2) th/mm3 WBC Differential Differential Comment PT (9.8-11.6) sec INR Ratio APTT (23.4-31.7) sec Sodium (136-145) meq/L Potassium (3.5-5.1) meq/L Chloride (98-107) meq/L Carbon Dioxide (21.0-32.0) meq/L Anion Gap (5-15) meq/L BUN (7-18) mg/dL Creatinine (0.60-1.30) mg/dL Estimated GFR (>89) mL/min Random Glucose (74-106) mg/dL Calcium (8.5-10.1) mg/dL Magnesium (1.5-2.5) mg/dL Total Bilirubin (0.2-1.0) mg/dL AST (15-37) U/L ALT (12-78) U/L Alkaline Phosphatase (45-117) U/L Troponin I (0.02-0.05) ng/mL Total Protein (6.4-8.2) g/dL Albumin (3.4-5.0) g/dL Lipase (73-393) U/L Urine Color Yellow (Yellw/Straw) Urine Clarity Clear (Clear) Urine pH 6.0 (5.0-8.5) Ur Specific [employer] 1.024 (1.002-1.035) Urine Protein Negative (Neg-Trace) mg/dL Urine Glucose (UA) Negative (Negative) mg/dL Urine Ketones Negative (Negative) mg/dL Urine Occult Blood Negative (Negative) Urine Nitrate Negative (Negative) Urine Bilirubin Negative (Negative) Urine Urobilinogen 2.0 H (Less than 2) mg/dL Ur Leukocyte Esterase Negative (Negative) Urine RBC Less than 1 (0-3) /hpf Urine WBC Less than 1 (0-5) /hpf Urine Mucus Few H (Occasional) /lpf Micro UA Comment Culture not ind Ur Microscopic Review Not Reportable Urine Culture Comments Culture not ind Imaging Data Radiologist's impression: Cervical Spine MRI 01/10/18 00:00 CONCLUSION: 1. Abnormal signal in the cervical cord that would be consistent with a demyelinating process. Head MRI 01/10/18 00:00 CONCLUSION: 1. Markedly abnormal periventricular white matter tracts extending into the brainstem consistent with a demyelinating process. 2. This has a very aggressive appearance for simple multiple sclerosis. Correlation suggested. Thoracic Spine MRI 01/10/18 00:00 CONCLUSION: 1. Abnormal MRI of the thoracic spine as above probably related to the patient' s multiple sclerosis. 2. The T5 level needs to be followed carefully because of the subtle cord expansion. Chest X-Ray 01/10/18 00:50 CONCLUSION: Negative examination. Head CT 01/10/18 00:50 CONCLUSION: 1. No acute intracranial abnormalities. Large retention cyst in the left maxillary sinus. . ECG Data Attestation: I personally reviewed and interpreted this ECG as follows: Interpretation: The patient had an EKG done on arrival. The patient's EKG revealed a sinus rhythm heart rate of 68, QRS duration 97 ms, QTC [address] segment elevation. Tremulous baseline which could be affecting interpretation, however the patient has a tremor related to his neurologic condition, lead III has T waves that are inverted. Discharge Plan Discharge Disposition Patient Disposition: 30 Still Patient Discharge Details Diagnosis: Exacerbation of multiple sclerosis Physicians Team ED Provider: Katharina Recio Primary Care Provider: Komal Olivia Attending Provider: Ronald Jones Other Providers: Becca Gabriel Discharge Interventions Interventions: ED Discharge Assessment Last Done: 01/10/18 04:59 Vital Signs Last Done: 01/10/18 03:52 Status ED Status: Left Department Discharge Information Discharge Date/Time: 01/10/18 05:00
[2018-01-10 02:01] LABS: Alkaline Phosphatase 57 U/L (45-117); Total Protein 7.8 g/dL (6.4-8.2)
[2018-01-10 02:04] LABS: Alanine Aminotransferase 21 U/L (12-78); Albumin 3.9 g/dL (3.4-5.0); Anion Gap 3 meq/L (5-15); Aspartate Aminotransferase 17 U/L (15-37); Blood Urea Nitrogen 12 mg/dL (7-18); Calcium 8.9 mg/dL (8.5-10.1); Carbon Dioxide 31.7 meq/L (21.0-32.0); Chloride 105 meq/L (98-107); Glomerular Filtration Rate Greater Than 89 mL/min (>89); Glucose,Random 90 mg/dL (74-106); Lipase 111 U/L (73-393); Magnesium 2.3 mg/dL (1.5-2.5); Potassium 4.3 meq/L (3.5-5.1); Sodium 140 meq/L (136-145)
--- NOTE | 2018-01-10 02:38 | CT ---
EXAM DATE: 01/10/2018 2:31 AM EST AGE/SEX: 22 years / Male INDICATIONS: New onset right sided weakness. CLINICAL DATA: This is the patient's initial encounter. Patient reports that signs and symptoms have been present for 1 day and indicates a pain score of 0/10. MEDICAL/SURGICAL HISTORY: Multiple sclerosis. None. RADIATION DOSE: 56.34 CTDI (mGy) COMPARISON: No prior exams available for comparison. TECHNIQUE: CT of the head without contrast. Using automated exposure control and adjustment of the mA and/or kV according to patient size, radiation dose was kept as low as reasonably achievable to ob tain optimal diagnostic quality images. DICOM format image data is available electronically for revi ew and comparison. FINDINGS: Cerebrum: The ventricles are normal for age. No evidence of midline shift, mass lesion, hemorrhage or acute infarction. No extraaxial fluid collections are seen. Posterior Fossa: The cerebellum and brainstem are intact. The 4th ventricle is midline. The cerebe llopontine angle is unremarkable. Extracranial: The visualized portion of the orbits is intact. Large retention cyst in the left maxil placido sinus. Skull: The calvaria is intact. No evidence of skull fracture. CONCLUSION: 1. No acute intracranial abnormalities. Large retention cyst in the left maxillary sinus. . Electronically signed by: Pola Gonzalez MD 01/10/2018 2:36 AM EST
[2018-01-10 04:57] LABS: Bilirubin,Urine Negative (Negative); Clarity,Urine Clear (Clear); Color,Urine Yellow (Yellw/Straw); Glucose,Urine (UA) Negative (Negative); Leukocyte Esterase,Urine Negative (Negative); Mucus,Urine Few /lpf (Occasional); Nitrite,Urine Negative (Negative); Specific Gravity,Urine 1.024 (1.002-1.035)
--- NOTE | 2018-01-10 09:05 | P.HPIM ---
History of Present Illness Primary Care Physician: Komal Olivia MD Chief Complaint: Right sided weakness times 4 days History of Present Illness: This a 22-year-old -Ang[place] male patient with past medical history which includes multiple sclerosis diagnosed approximately 10/2016. In 10/2016 patient presented to the hospital due to left upper and lower extremity weakness. Patient has also had a left upper extremity tremor which has been present since 10/2016. Patient had followed with Dr. Castañeda for a short period of time but was unable to continue with follow up or medication due to cost. Patient reports he did not have insurance for a period of time. Patient reports for the past 4 days he has had weakness in his right upper and lower extremities associated. Patient reports that he nearly feel trying to get into the shower and also had difficulties holding the soap to wash himself. Patient reports these symptoms are similar to his previous MS flare a year ago when he was diagnosed therefore he proceeded to the emergency department for further evaluation and treatment. Patient denies changes in vision or difficulty swallowing food. Patient had Solu-Medrol 125 mg IV in the emergency department approximally 1 AM and reports his symptoms are a little better already. The patient reports that over the last 2 days he has had urinary frequency, however he denies having any dysuria, urinary urgency, or polydipsia. The patient denies having any facial droop, difficulty with word finding ability, new vision changes, recent fevers, cough, congestion, neck pain, chest pain, shortness of breath, abdominal pain, vomiting, or diarrhea. PMH: MS PSXH: Denies prior surgeries FMH: Denies MS in his family Social history: Lives with his mom Denies EtOH use Smokes approximately 8 cigarettes a day since he was 10 years old Smokes marijuana daily denies other illicit drug use Inpatient Certification Inpatient Certification: I certify that the inpatient services were ordered in accordance with Medicare regulations governing the order. This includes certification that hospital inpatient services are reasonable and necessary and in the case of services not specified as inpatient-only under 42 CFR 419.22(n), that they are appropriately provided as inpatient services in accordance to with the 2-midnight benchmark under 43 CFR 412.3(e) Medications and Allergies Allergies Allergy/AdvReac Type Severity Reaction Status Date / Time No Known Allergies Unknown Uncoded 03/04/17 10:55 Home Medications Medication Instructions Recorded Confirmed Type No Known Home Medications 01/10/18 01/10/18 History Active Medications: Active Medications Sodium Chloride (Ns Flush) 2 ml IV.FLUSH UNSCH PRN PRN Reason: FLUSH AFTER USING IV ACCESS Physical Exam Vital signs: Last Vital Signs Temp 97.8 F 01/10/18 05:00 Pulse 69 01/10/18 08:06 Resp 20 01/10/18 05:00 BP 136/68 01/10/18 05:00 Pulse Ox 97 01/10/18 05:00 Narrative: GENERAL: This is a well-nourished, well-developed patient, in no apparent distress. CARDIOVASCULAR: Regular rate and rhythm RESPIRATORY: Clear to auscultation. Breath sounds equal bilaterally. GASTROINTESTINAL: Abdomen soft, non-tender, nondistended. Normal active bowel sounds MUSCULOSKELETAL: Extremities without clubbing, cyanosis, or edema. NEURO: Alert & Oriented x4 to person, place, time, situation. Moves all ext x4. left upper extremity tremor noted patient's bilateral upper and lower extremities are 4/5. Patient also unable to fully open his right hand Results Labs CBC & Chem 7: 01/10/18 01:20 01/10/18 01:20 Caprini VTE Risk Assessment Caprini VTE Risk Assessment: No/Low Risk (score <= 1) Caprini Risk Assessment Model: Point Value = 1 Point Value = 2 Point Value = 3 Point Value = 5 Age 41-60 Minor surgery BMI > 25 kg/m2 Swollen legs Varicose veins or History of unexplained or recurrent spontaneous Oral contraceptives or hormone replacement Sepsis (< 1 month) Serious lung disease, including pneumonia (< 1 month) Abnormal pulmonary function Acute myocardial infarction Congestive heart failure (< 1 month) History of inflammatory bowel disease Medical patient at bed rest Age 61-74 Arthroscopic surgery Major open surgery (> 45 min) Laparoscopic surgery (> 45 min) Malignancy Confined to bed (> 72 hours) Immobilizing plaster cast Central venous access Age >= 75 History of VTE Family history of VTE Factor V Leiden Prothrombin [id number] Lupus anticoagulant Anticardiolipin antibodies Elevated serum homocysteine Heparin-induced thrombocytopenia Other congenital or acquired thrombophilia Stroke (< 1 month) Elective arthroplasty Hip, pelvis, or leg fracture Acute spinal cord injury (< 1 month) Prophylaxis Regimen: Total Risk Factor Score Risk Level Prophylaxis Regimen 0-1 Low Early ambulation 2 Moderate Order ONE of the following: *Sequential Compression Device (SCD) *Heparin 5000 units SQ BID 3-4 Higher Order ONE of the following medications: *Heparin 5000 units SQ TID *Enoxaparin/Lovenox 40 mg SQ daily (WT < 150 kg, CrCl > 30 mL/min) *Enoxaparin/Lovenox 30 mg SQ daily (WT < 150 kg, CrCl > 10-29 mL/min) *Enoxaparin/Lovenox 30 mg SQ BID (WT < 150 kg, CrCl > 30 mL/min) AND/OR *Sequential Compression Device (SCD) 5 or more Highest Order ONE of the following medications: *Heparin 5000 units SQ TID (Preferred with Epidurals) *Enoxaparin/Lovenox 40 mg SQ daily (WT < 150 kg, CrCl > 30 mL/min) *Enoxaparin/Lovenox 30 mg SQ daily (WT < 150 kg, CrCl > 10-29 mL/min) *Enoxaparin/Lovenox 30 mg SQ BID (WT < 150 kg, CrCl > 30 mL/min) AND *Sequential Compression Device (SCD) Assessment and Plan Plan This a 22-year-old -Ang[place] male patient with past medical history which includes multiple sclerosis diagnosed approximately 10/2016. In 10/2016 patient presented to the hospital due to left upper and lower extremity weakness. Patient has also had a left upper extremity tremor which has been present since 10/2016. Patient had followed with Dr. Castañeda for a short period of time but was unable to continue with follow up or medication due to cost. Patient reports he did not have insurance for a period of time. Patient reports for the past 4 days he has had weakness in his right upper and lower extremities associated. Patient reports that he nearly feel trying to get into the shower and also had difficulties holding the soap to wash himself. Patient reports these symptoms are similar to his previous MS flare a year ago when he was diagnosed therefore he proceeded to the emergency department for further evaluation and treatment. Patient denies changes in vision or difficulty swallowing food. MS exacerbation Patient was given 125 mg Solu-Medrol in the emergency department approximately 1 AM at Consultation to neurology Dr. Gabriel, case discussed with Dr. Gabriel will add Solu-Medrol but at 1000mg daily x 3 days Neurology also recommending MRI brain, C spine and T spine Patient was in the process of establishing with Dr. Parnell and patient will need outpatient follow up to get started on a daily treatment regiment DVT prophylaxis with SCDs H&P: Quality VTE Deep Vein Thrombosis/Pulmonary Embolism Present on Admission: No
[2018-01-10] MEDS ORDERED: MethylPREDNISolone Sod Suc Inj 1,000 MG in Sodium Chlor 0.9% Inj 100 ML IV.SIG SCH (12:45)
[2018-01-10] MEDS: MethylPREDNISolone Sod Suc Inj 1,000 MG in Dextrose 5% in Water Inj 100 ML IV.SIG SCH ×2 (14:45)
--- NOTE | 2018-01-10 15:24 | MB ---
cc: Becca Gabriel MD, Leslie D MD DATE: 01/10/2018 REASON FOR CONSULTATION: MS exacerbation. HISTORY OF PRESENT ILLNESS: The patient is a pleasant 22-year-old male with a history of MS diagnosed in 2017. Has seen Dr. Castañeda in the past, but lost his insurance and was unable to followup. Apparently was on Tecfidera, but there were some issues with getting the medicine, swallowing the medicine and then he ended up seeing Dr. Parnell. Has not been on any medicine for at least a year or so. Comes in for 4 days of weakness of the right side, arm and leg, a tremor in his left upper extremity that has been ongoing for a few months. Is given a little bit of Solu-Medrol, by the ED. Some improving symptoms. Has had a urinary frequency issue for a couple of days as well, but no other complaints. He states he does not use any assistive devices when ambulating. Is not on any medicines. PAST MEDICAL HISTORY: MS diagnosed here in [place]. FAMILY HISTORY: No MS. SOCIAL HISTORY: Lives with his mother. Does not drink. Smokes maybe less than half a pack a day since age of 10. No illicit drugs. PHYSICAL EXAMINATION: VITAL SIGNS: Temperature 97.3, pulse 69, respiratory rate 14, blood pressure 103/51. NECK: Supple. HEART: Regular. NEUROLOGIC: He is awake, alert, fluent. Pupils reactive. No afferent, pupillary defect. He has no trouble with greens and reds. No color desaturation. Visual bangura seem full. Face symmetrical. Tongue midline. Motor martin, I do not see any significant weakness over the right side, but there is a tremor with movement of the left hand, as well as with rest. On onfdhy-gsor-apsowl there is some dysmetria. No leg lag. DTRs are brisk throughout. No clonus. Toes he withdraws. Sensory otherwise normal. His gait is withheld at this time. LABORATORY DATA: Reviewed. CBC is unremarkable. Coag panel was unremarkable as well. Chemistries reviewed. Chemistry from this visit is really unremarkable as well. Urine, 2 urobilinogen, mucus, but no culture needed. IMAGING: CT head shows nothing acute, but the patient did not have an MRI. IMPRESSION: Multiple sclerosis exacerbation in a 22-year-old male. Recommend Solu-Medrol 1 gram daily for 3 days. PT, OT. ASSESSMENT AND PLAN: MRI brain, cervical spine, thoracic spine with and without contrast and would recommend now that his insurance is on board again, he followup with Neurology as an outpatient and get back on a disease-modifying drug as soon as possible. Case discussed with the patient's physician, Dr. Jones. MD ENRIQUE Odell/troy/danie , 01:03 PM , 01:12 PM
[2018-01-10] MEDS ORDERED: Gadobutrol PF 10 MMOL/10 ML Vial (for RAD) IV.SIG ONE (18:52)
--- NOTE | 2018-01-10 18:56 | MR ---
EXAM DATE: 01/10/2018 6:30 PM EST AGE/SEX: 22 years / Male INDICATIONS: . Multiple Sclerosis. CLINICAL DATA: This is the patient's initial encounter. Patient reports that signs and symptoms have been present for 3 days and indicates a pain score of 7/10. MEDICAL/SURGICAL HISTORY: Multiple sclerosis. None. COMPARISON: No prior exams available for comparison. TECHNIQUE: Multiplanar, multisequence MRI of the thoracic spine was performed without and with 10 ml Gadavist (gadobutrol) contrast as a single exam dose. FINDINGS: Marrow signal is homogeneous. There is increased signal in the thoracic cord from mid T4 to mid T6 with very minimal cord expansion at T5. Signal is centered within the central cord, slightly to left of midline at T5-T6. There is no abnormal contrast enhancement. The upper thoracic cord above this level appears normal. The lower thoracic below this level shows mi nimal modality at the T11 level was very subtle increased signal in the right lateral aspect of the c ord. There is no cord compression. There is no abnormal marrow. CONCLUSION: 1. Abnormal MRI of the thoracic spine as above probably related to the patient's multiple sclerosis. 2. The T5 level needs to be followed carefully because of the subtle cord expansion. Electronically signed by: Lai Braswell MD 01/10/2018 6:55 PM EST
--- NOTE | 2018-01-10 18:58 | MR ---
EXAM DATE: 01/10/2018 6:26 PM EST AGE/SEX: 22 years / Male INDICATIONS: . Multiple Sclerosis. CLINICAL DATA: This is the patient's initial encounter. Patient reports that signs and symptoms have been present for 3 days and indicates a pain score of 6/10. MEDICAL/SURGICAL HISTORY: Multiple sclerosis. None. COMPARISON: No prior exams available for comparison. TECHNIQUE: Multiplanar, multisequence MRI examination of the cervical spine was performed without an d with 10 ml Gadavist (gadobutrol) contrast as a single exam dose. FINDINGS: The marrow signal in the cervical vertebra appear homogeneous and normal There is abnormal signal in a patchy distribution in the high cervical cord at C2 mid cervical cord a t C4 and lower cervical cord at the C6 level. There is no cord expansion The cerebellar tonsils are in normal anatomic position The naveed is abnormal and will be described in detail on the MRI of the brain. CONCLUSION: 1. Abnormal signal in the cervical cord that would be consistent with a demyelinating process. Electronically signed by: Lai Braswell MD 01/10/2018 6:57 PM EST
--- NOTE | 2018-01-10 19:02 | MR ---
EXAM DATE: 01/10/2018 6:19 PM EST AGE/SEX: 22 years / Male INDICATIONS: . Multiple Sclerosis. CLINICAL DATA: This is the patient's initial encounter. Patient reports that signs and symptoms have been present for 1 day and indicates a pain score of 6/10. MEDICAL/SURGICAL HISTORY: Multiple sclerosis. None. COMPARISON: No prior exams available for comparison. TECHNIQUE: Multiplanar, multisequence examination of the brain was performed without and with 10 ml G adavist (gadobutrol) contrast as a single exam dose. FINDINGS: The ventricles are of normal size. Extensive patchy white matter changes are present in the periventr icular white matter radiating out along the subcortical U fibers with significant involvement in the brainstem beginning at the level of the cerebral peduncles extending into the upper cervical cord. Th ere is no cord expansion. There is no abnormal contrast in stomach enhancement. There are no extra-axial fluid collections appreciated. There is opacification of the left maxillary sinus.. CONCLUSION: 1. Markedly abnormal periventricular white matter tracts extending into the brainstem consistent wit h a demyelinating process. 2. This has a very aggressive appearance for simple multiple sclerosis. Correlation suggested. Electronically signed by: Lai Braswell MD 01/10/2018 7:00 PM EST
--- NOTE | 2018-01-11 06:43 | ECG ---
Date Performed: 01/10/2018 Time Performed: 01:20:51 PTAGE: 22 years EKG: Sinus rhythm NONSPECIFIC ST ELEVATION BORDERLINE ECG PREVIOUS TRACING : 11/12/2016 00.48 Since the previous tracing, no significant change noted DOCTOR: Marvin Bryant Interpretating Date/Time 01/11/2018 06:42:24
[2018-01-11] MEDS: MethylPREDNISolone Sod Suc Inj 1,000 MG in Dextrose 5% in Water Inj 100 ML IV.SIG SCH ×2 (09:01)
--- NOTE | 2018-01-11 20:10 | P.PNIM ---
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 In 10/2016 patient presented to the hospital due to left upper and lower extremity weakness. Patient has also had a left upper extremity tremor which has been present since 10/2016. Patient had followed with Dr. Castañeda for a short period of time but was unable to continue with follow up or medication due to cost. Patient reports he did not have insurance for a period of time. Patient reports for the past 4 days he has had weakness in his right upper and lower extremities associated. Patient reports that he nearly feel trying to get into the shower and also had difficulties holding the soap to wash himself. Patient reports these symptoms are similar to his previous MS flare a year ago when he was diagnosed therefore he proceeded to the emergency department for further evaluation and treatment. Patient denies changes in vision or difficulty swallowing food. MS exacerbation MRI brain/c spine/t spine with MS lesions cont day 2/3 high dose solumedrol spoke with neurology. plan close f/u. recc. Dr Castañeda. updated pt/mother at bedside. probably dc home tomorrow. Progress Note: Quality VTE Deep Vein Thrombosis/Pulmonary Embolism Present on Admission: No
[2018-01-12] MEDS: MethylPREDNISolone Sod Suc Inj 1,000 MG in Dextrose 5% in Water Inj 100 ML IV.SIG SCH ×2 (09:16)
--- NOTE | 2018-01-12 10:30 | P.DCO ---
Diagnosis (1) Exacerbation of multiple sclerosis: Status: Acute Physical Therapy Order: Evaluate and treat and Improve ambulation Occupational Therapy Order: Evaluate and treat, Improve ADL, Gross motor coordination and Fine motor coordination Home Health Nursing Order: Medical education and Signs/symptoms of disease process Case Management Consult Case Management Consult-Home Health: Yes I have seen patient Demar Tejada III on 01/12/18. My clinical findings support the need for the requested home health care services because: I certify that my clinical findings support that this patient is homebound because:
--- NOTE | 2018-01-12 21:29 | P.DS ---
DS: Providers Date of admission: 01/10/18 04:09 Primary care physician: Komal Olivia MD Consults: 01/10/18 06:17 Consult to Neurology Routine Consulting Provider: Becca Gabriel Reason for Consultation: MS exacerbation Notified:: Service Spoke with:: Sade Date Notified:: 01/10/18 Time Notified:: 06:22 Ordering Provider: TERI Brief History from admission: This a 22-year-old -[place] male patient with past medical history which includes multiple sclerosis diagnosed approximately 10/2016. In 10/2016 patient presented to the hospital due to left upper and lower extremity weakness. Patient has also had a left upper extremity tremor which has been present since 10/2016. Patient had followed with Dr. Castañeda for a short period of time but was unable to continue with follow up or medication due to cost. Patient reports he did not have insurance for a period of time. Patient reports for the past 4 days he has had weakness in his right upper and lower extremities associated. Patient reports that he nearly feel trying to get into the shower and also had difficulties holding the soap to wash himself. Patient reports these symptoms are similar to his previous MS flare a year ago when he was diagnosed therefore he proceeded to the emergency department for further evaluation and treatment. Patient denies changes in vision or difficulty swallowing food. Patient had Solu-Medrol 125 mg IV in the emergency department approximally 1 AM and reports his symptoms are a little better already. The patient reports that over the last 2 days he has had urinary frequency, however he denies having any dysuria, urinary urgency, or polydipsia. The patient denies having any facial droop, difficulty with word finding ability, new vision changes, recent fevers, cough, congestion, neck pain, chest pain, shortness of breath, abdominal pain, vomiting, or diarrhea. PMH: MS PSXH: Denies prior surgeries FMH: Denies MS in his family Social history: Lives with his mom Denies EtOH use Smokes approximately 8 cigarettes a day since he was 10 years old Smokes marijuana daily denies other illicit drug use DS: Diagnosis Discharge Diagnosis (1) Exacerbation of multiple sclerosis: Status: Acute DS: Summary Assessment and Plan Plan This a 22-year-old -[place] male patient with past medical history which includes multiple sclerosis diagnosed approximately 10/2016. In 10/2016 patient presented to the hospital due to left upper and lower extremity weakness. Patient has also had a left upper extremity tremor which has been present since 10/2016. Patient had followed with Dr. Castañeda for a short period of time but was unable to continue with follow up or medication due to cost. Patient reports he did not have insurance for a period of time. Patient reports for the past 4 days he has had weakness in his right upper and lower extremities associated. Patient reports that he nearly feel trying to get into the shower and also had difficulties holding the soap to wash himself. Patient reports these symptoms are similar to his previous MS flare a year ago when he was diagnosed therefore he proceeded to the emergency department for further evaluation and treatment. Patient denies changes in vision or difficulty swallowing food. MS exacerbation MRI brain/c spine/t spine with MS lesions Pt was given 3 days of 1000mg iv solumedrol daily He was seen by neurology during the visit Plan for close neurology f/u Dr Castañeda to decide on further maintenance MS therapy. Pt given copies of his MRI's to take back to the appt and further imaging survellience per neurology updated pt/mother at bedside. On day of dc his acute right side weakness was essentially back to his baseline. Pt says his left hand tremors are more chronic and essentially unchanged. Time Spent with Patient Total time spent providing and/or coordinating discharge services: Quality: VTE Deep Vein Thrombosis/Pulmonary Embolism Present on Admission: No Results Impressions ITS Impressions Cervical Spine MRI 01/10/18 00:00 CONCLUSION: 1. Abnormal signal in the cervical cord that would be consistent with a demyelinating process. Head MRI 01/10/18 00:00 CONCLUSION: 1. Markedly abnormal periventricular white matter tracts extending into the brainstem consistent with a demyelinating process. 2. This has a very aggressive appearance for simple multiple sclerosis. Correlation suggested. Thoracic Spine MRI 01/10/18 00:00 CONCLUSION: 1. Abnormal MRI of the thoracic spine as above probably related to the patient' s multiple sclerosis. 2. The T5 level needs to be followed carefully because of the subtle cord expansion. Chest X-Ray 01/10/18 00:50 CONCLUSION: Negative examination. Head CT 01/10/18 00:50 CONCLUSION: 1. No acute intracranial abnormalities. Large retention cyst in the left maxillary sinus. . Discharge Plan Discharge Disposition Patient Disposition: W/Home Health Service Discharge Condition Condition: Stable Discharge Order Discharge Orders: Discharge Order (Routine); Ordered 01/12/18 Ordered By: Ronald Jones Discharge Details Anticipated Discharge Date: 01/12/18 Discharge Comment: give pt a copy of his mri brain/c spine/t spine to take f/u neurology appt. Physicians Team Primary Care Provider: Komal Olivia Attending Provider: Ronald Jones Other Providers: Becca Gabriel Rxs /Orders / Referrals /Forms Prescriptions: Continue No Known Home Medications RF: 0 Referrals: Louis Castañeda MD, PhD [Physician] - See Instructions (Follow up with in 1 week) Komal Olivia MD [Primary Care Provider] - See Instructions (follow up with in 1 week) Hardy Hahn MD [Physician] - See Instructions (Follow up in 2 weeks) Discharge Instructions Patient Printed Instructions: Multiple Sclerosis (DC) Post Discharge Care Plan Care Plan Goals: Your Health Problems: Goals to Promote Your Health: * To prevent worsening of your condition * To maintain your health at the optimal level Directions to Meet Your Goals: * Take your medications as prescribed * Follow your dietary instruction * Follow activity as directed * Keep your appointments as scheduled * Take your immunizations and boosters as scheduled * If your symptoms worsen call your PCP * If no PCP go to Urgent Care or Emergency Room Smoking is dangerous to your health. Avoid second hand smoke. You may reach the 24-hour crisis hotline for domestic abuse at . Status ED Status: Left Department Discharge Information Discharge Date/Time: 01/12/18 13:39
== END 2018-01-12 13:39 | disposition home health service (06) ==
LOC: NEPE 23:38 → NEDA 01-10 04:09 → N06 01-10 04:58
PROVIDERS: ADMIT Hospitalist; ATTEND Hospitalist